=== PATIENT | male | born 1950 | race Caucasian/White ===

== ENCOUNTER 2016-09-10 06:29 | Inpatient (IN) | payer OTHER ==
--- NOTE | ~2016-09-10 | FU ---
[facility] Nutrition Therapy DATE: 09/17/16 Patient: JANI ALLEN Physician: ELIN Address: [address] [facility] [address] Room/Bed: [address], Zip: [place] [address] Admit Date: 09/10/16 Date of : [birth year] Height: 6 0 Weight: 294 133.5 NUTRITION MONITORING/FOLLOW-UP: Reason: PT SEEN FOR FOLLOW-UP/ENTERAL NUTRITION SUPPORT DX: ACUTE RESP FAILURE, PNA Anthropometrics: 6'0", WT: 214# (97 KG), BMI: 29.0 Labs: GLU: 133, BUN: 27, CA:8.2, ALB: 1.9, ALT: 75 Meds: NACL, SOLU-MEDROL, NOVOLOG, PROTONIX I&O's: 1237/2360 Skin: ISSUES NOTED Estimated Nutrition Needs: 5430-7382 KCAL 103-130 G PRO Assessment: CHART REVIEWED AND EVENTS NOTED. PT SEEN FOR ENTERAL NUTRITION SUPPORT FOLLOW-UP. PT EXTUBATED, CURRENTLY ON NASAL CANNULA RECEIVING ALTERNATIVE NUTRITION SUPPORT OF JEVITY 1.5 @ 50 ML/HR + SUGAR-FREE PROSTAT BID. PLANS IN PLACE FOR PATIENT INTAKE COORDINATOR EVAL TODAY WELL TRANSFER TO TELEMETRY. FAMILY IN ROOM REPORTED NO DIET QUESTIONS AT THIS TIME. RD TO CONTINUE TO FOLLOW. SEE RECOMMENDATIONS BELOW. Dx: INADEQUATE ORAL INTAKE R/T DX, CURRENT CONDITION AEB PT RECEIVING ALTERNATIVE NUTRITION SUPPORT. Intervention: 1. ENTERAL NUTRITION SUPPORT Monitoring, Evaluation and Goals: GOALS MET 1. ENTERAL NUTRITION SUPPORT; TOLERATE EN AT GOAL W/NO SIGNS OF INTOLERANCE 2. PO INTAKE; ADVANCE DIET PER PATIENT INTAKE COORDINATOR/TOLERATE DIET W/NO C/O N/V/D 3. LABS; WNL MONITOR: -DIET ADVANCEMENT -PO INTAKE/APPETITE -WEIGHTS -LABS Recommendations: 1. ONCE MEDICALLY FEASIBLE, ADVANCE DIET PER PATIENT INTAKE COORDINATOR EVAL + HH + HIGH KCAL/HIGH PROTEIN [facility] Nutrition Therapy DATE: 09/17/16 Patient: JANI ALLEN Physician: ELIN Address: [address] Room/Bed: [address], Zip: [place] [address] Admit Date: 09/10/16 Date of : [birth year] Height: 6 0 Weight: 294 133.5 2. IF PT UNABLE TO TOLERATE PO INTAKE, RE-START ENTERAL NUTRITION SUPPORT OF JEVITY 1.5 @ 20 ML/HR, ADVANCE 10 ML q 4 HOURS TO GOAL RATE OF 70 ML/HR -PROVIDES 2520 KCAL, 107 G PRO, [address] WILL F/U PER PROTOCOL PT IS MODERATELY COMPROMISED Respectfully, AINSLEY MCCARTHY MS, RD, LD Food and Nutritional Services [facility] cc: client file
--- NOTE | ~2016-09-10 | CR63 ---
[facility] A Service of [facility] & [facility] RADIOLOGY TEXT RESULTS PATIENT: JANI ALLEN LOCATION: [facility] 57-01 : 49 UNIT #: [id number] AGE: [address]: Rm Manley MD SEX: M ORDER DR: [id number] [facility] [address] [place], [place] [address] [id number] I MR#: [id number] Acc #: [id number] NAME: JANI ALLEN : 1950 SEX: M STUDY DATE/TIME: 09/25/2016 11:52 UNIT: [facility] ROOM: [facility] STUDY DESCRIPTION: CR Chest 2 View Attending Physician: Rm Manley M.D. Ordering Physician: Rm Manley M.D. Primary Care Physician: Marie Vickers M.D. MEDICAL IMAGING REPORT This report is preliminary unless electronic signature is present EXAM PA and lateral chest INDICATIONS 66-year male with shortness of breath today. Compared with 09/20/2016. FINDINGS There is increased density in the right base suspicious for worsening infiltrate. There is a very small right pleural effusion. There are bilateral interstitial opacities not significantly changed. Heart size stable. PICC line on the right stable. Degenerative changes thoracic spine. IMPRESSION There appears be a worsening infiltrate in the right lower lobe concerning for worsening pneumonia. Dictated by... Alonso Farooq M.D. THIS IS AN ELECTRONICALLY VERIFIED REPORT Alonso Farooq M.D. at 09/26/2016 10:43 AM ADRY/jessica TD: 09/26/2016 06:25 JOB #: [id number] MEDICAL IMAGING REPORT COPY
--- NOTE | ~2016-09-10 | EKG ---
PATIENT: JANI ALLEN UNIT #: [id number] Ventricular Rate: 121 BPM Atrial Rate: 121 BPM P-R Interval: 120 ms QRS Duration: 140 ms Q-T Interval: 358 ms QTC Calculation(Bezet): 508 ms P [place]: 37 degrees Calculated R [place]: 10 degrees Calculated T [place]: 32 degrees Diagnosis Line: Sinus tachycardia Diagnosis Line: Right bundle branch block Diagnosis Line: Left anterior fascicular block Diagnosis Line: Abnormal ECG Diagnosis Line: When compared with ECG of 03-MAY-2016 06:22, Diagnosis Line: No significant change was found Diagnosis Line: Confirmed by DONNELL TAFOYA MD ([id number]) on 09/10/2016 Diagnosis Line: 5:28:42 PM INTERPRETING MD: MICHELET THURMAN
--- NOTE | ~2016-09-10 | CR72 ---
[facility] A Service of [facility] & [facility] RADIOLOGY TEXT RESULTS PATIENT: JANI ALLEN LOCATION: [place] [address]- : [birth year] UNIT #: [id number] AGE: [address]: Rm Manley MD SEX: M ORDER DR: [id number] [facility] [address] [place], [place] [address] [id number] I MR#: [id number] Acc #: [id number] NAME: JANI ALLEN. : 1950 SEX: M STUDY DATE/TIME: 09/12/2016 4:57 UNIT: [facility] ROOM: [facility] STUDY DESCRIPTION: CR Chest Single View Portable Attending Physician: Rm Manley M.D. Ordering Physician: Rm Manley M.D. Primary Care Physician: Marie Vickers M.D. MEDICAL IMAGING REPORT This report is preliminary unless electronic signature is present EXAM AP portable chest 09/12/2016 HISTORY Respiratory failure. Patient on ventilator. Follow up cardiopulmonary status. TECHNIQUE AP portable chest x-ray. FINDINGS Exam shows no change since yesterday. Endotracheal tube and left arm PICC in good position. Feeding tube below the diaphragm. Patchy infiltrates throughout both lungs, greatest in the lung bases where there are small bilateral pleural effusions. Heart size normal. IMPRESSION Stable portable chest radiograph, unchanged since yesterday. Support devices in good position. Dictated by... Rob Geller M.D. THIS IS AN ELECTRONICALLY VERIFIED REPORT Rob Geller M.D. at 09/12/2016 3:06 PM DALI/paco TD: 09/12/2016 12:06 JOB #: [id number] MEDICAL IMAGING REPORT COPY
--- NOTE | ~2016-09-10 | CR72 ---
[facility] A Service of [facility] & [facility] RADIOLOGY TEXT RESULTS PATIENT: JANI ALLEN LOCATION: [place] [address]- : [birth year] UNIT #: [id number] AGE: [address]: Rm Manley MD SEX: M ORDER DR: [id number] [facility] [address] [place], [place] [address] [id number] I MR#: [id number] Acc #: [id number] NAME: JANI ALLEN. : 1950 SEX: M STUDY DATE/TIME: 09/11/2016 4:03 UNIT: [facility] ROOM: [facility] STUDY DESCRIPTION: CR Chest Single View Portable Attending Physician: Rm Manley M.D. Ordering Physician: Rm Manley M.D. Primary Care Physician: Marie Vickers M.D. MEDICAL IMAGING REPORT This report is preliminary unless electronic signature is present EXAM AP portable chest 09/11/2016 HISTORY Respiratory failure. Patient on ventilator. Follow up cardiopulmonary status. TECHNIQUE AP portable chest x-ray. FINDINGS The exam shows stable patchy airspace infiltrates in both lower lobes and probable tiny bilateral pleural effusions, unchanged since 09/10/2016. Endotracheal tube, left arm PICC and Dobbhoff feeding tube remain in good position. IMPRESSION Stable portable chest radiograph, unchanged since yesterday. Dictated by... Rob Geller M.D. THIS IS AN ELECTRONICALLY VERIFIED REPORT Rob Geller M.D. at 09/11/2016 3:01 PM DALI/radha TD: 09/11/2016 09:59 JOB #: [id number] MEDICAL IMAGING REPORT COPY
--- NOTE | ~2016-09-10 | CR7 ---
[facility] A Service of [facility] & [facility] RADIOLOGY TEXT RESULTS PATIENT: JANI ALLEN LOCATION: [facility] 577-01 : [birth year] UNIT #: [id number] AGE: [address]: Rm Manley MD SEX: M ORDER DR: [id number] [facility] [address] [place], [place] [address] [id number] I MR#: [id number] Acc #: [id number] NAME: JANI ALLEN : 1950 SEX: M STUDY DATE/TIME: 09/22/2016 13:18 UNIT: [facility] ROOM: [facility] STUDY DESCRIPTION: CR Abdomen Single AP View Attending Physician: Rm Manley M.D. Ordering Physician: Clyde Paz M.D. Primary Care Physician: Marie Vickers M.D. MEDICAL IMAGING REPORT This report is preliminary unless electronic signature is present EXAM Abdomen. DATE OF EXAM 09/22/2016 INDICATION Dobbhoff tube placement. Confirm position. FINDINGS The supine view of the abdomen is compared with one from 09/10/2016. The Dobbhoff tube is coiled in the stomach. The bowel gas pattern is normal. The bones are normal. Dictated by... Ritchie Arevalo M.D. THIS IS AN ELECTRONICALLY VERIFIED REPORT Ritchie Arevalo M.D. at 09/22/2016 4:55 PM ERICKA/eileen TD: 09/22/2016 15:58 JOB #: [id number] MEDICAL IMAGING REPORT COPY
--- NOTE | ~2016-09-10 | CR72 ---
[facility] A Service of [facility] & [facility] RADIOLOGY TEXT RESULTS PATIENT: JANI ALLEN LOCATION: [facility] : [birth year] UNIT #: [id number] AGE: [address]: Rm Manley MD SEX: M ORDER DR: [id number] [facility] [address] [place], [place] [address] [id number] E MR#: [id number] Acc #: [id number] NAME: JANI ALLEN. : 1950 SEX: M STUDY DATE/TIME: 09/10/2016 6:28 UNIT: [facility] ROOM: STUDY DESCRIPTION: CR Chest Single View Portable Attending Physician: Ron Gutierrez M.D. Ordering Physician: Ron Gutierrez M.D. Primary Care Physician: Marie Vickers M.D. MEDICAL IMAGING REPORT This report is preliminary unless electronic signature is present EXAM Portable chest. INDICATION Shortness of air and respiratory distress beginning this morning, 09/10/2016. COMPARISON 05/04/2016. FINDINGS Today's portable view of the chest is compared with 05/04/2016. There is some background fibrosis, but there is clearly a new right lower lobe infiltrate measuring a few cm in diameter. The heart size is normal. The bones are unremarkable. Dictated by... Ritchie Arevalo M.D. THIS IS AN ELECTRONICALLY VERIFIED REPORT Ritchie Arevalo M.D. at 09/10/2016 10:25 AM FEL/gz TD: 09/10/2016 09:07 JOB #: [id number] MEDICAL IMAGING REPORT COPY
--- NOTE | ~2016-09-10 | FU ---
[facility] Nutrition Therapy DATE: 09/25/16 Patient: JANI ALLEN Physician: ELIN Address: [address] [facility] [address] Room/Bed: [address] [place] [address], Zip: [place] [address] Admit Date: 09/10/16 Date of : 49 Height: 6 0 Weight: 177 80.5 NUTRITION MONITORING/FOLLOW-UP: Reason: CONSULT RE: BOLUS FEEDS, SEEN FOR FOLLOW-UP Anthropometrics: 6'0", WT: 177# (80 KG), BMI: 24.0 -ADMIT WEIGHT: 190# Labs: GLU: 159, NA+:132, CA+:8.2, ALB: 2.2, ALT: 88 Meds: D5%, MIRALAX, PROTONIX, PREDNISONE, NOVOLOG I&O's: , 1 BM NOTED Skin: ISSUES NOTED Estimated Nutrition Needs: 9492-2362 KCAL 103-130 G PRO Assessment: CHART REVIEWED AND EVENTS NOTED. PT SEEN FOR CONSULT. PT UNABLE TO CONSUME ANYTHING BY MOUTH 2' RISK OF ASPIRATION. PT RECEIVING ALTERNATIVE NUTRITION SUPPORT OF JEVITY 1.5 @ 70 ML/HR. PER RN AND CHART, PT TOLERATING ENTERAL NUTRITION, NO ISSUES NOTED. PER MD NOTES, PLANS TO BEGIN BOLUS FEEDS PER RD RECOMMENDATIONS ONCE D/C'D HOME. FAMILY AND PT REPORTED NO DIET QUESTIONS AT THIS TIME. RD TO FOLLOW. Dx: INADEQUATE ORAL INTAKE R/T DYSPHAGIA AEB NEED FOR ALTERNATIVE NUTRITION SUPPORT. ACTIVE Intervention: 1. ENTERAL NUTRITION IN PLACE Monitoring, Evaluation and Goals: GOALS MET 1. ENTERAL NUTRITION; PROVIDE 80-100% ESTIMATED NEEDS W/NO SIGNS OF INTOLERANCE 2. LABS; WNL Recommendations: 1. ONCE PT TO D/C HOME, RECOMMEND BOLUS FEEDS OF JEVITY 1.5/ 7 CANS DAILY -2 CANS BREAKFAST, 2 CANS LUNCH, 2 CANS DINNER + 1 CAN HS SNACK ADD FREE H20 FLUSHES PER MD RD WILL F/U PER PROTOCOL PT IS MODERATELY COMPROMISED Respectfully, [facility] Nutrition Therapy DATE: 09/25/16 Patient: JANI ALLEN Physician: ELIN Address: [address] Room/Bed: [address] [place] [address], Zip: [place] [address] Admit Date: 09/10/16 Date of : 49 Height: 6 0 Weight: 177 80.5 AINSLEY MCCARTHY MS, RD, LD Food and Nutritional Services [facility] cc: client file
--- NOTE | ~2016-09-10 | FU ---
[facility] Nutrition Therapy DATE: 09/14/16 Patient: JANI ALLEN Physician: ELIN Address: [address] [facility] [address] Room/Bed: [address], Zip: [place] [address] Admit Date: 09/10/16 Date of : [birth year] Height: 6 0 Weight: 213 97 NUTRITION MONITORING/FOLLOW-UP: Reason: Enteral nutrition follow-up Anthropometrics: Wt: 97 kg (213 lbs) Labs: 09/13: Glucose 178, BUN 25, POC 118 (09/14) Meds: PPI, Novolog (medium SSI), Solu-Medrol, Propofol @ 26 ml/hr (687 lipid kcals) I&O's: 3306/1340, last BM 09/07, abdomen distended, hypoactive bowel sounds Skin: No change Estimated Nutrition Needs: 7400-5865 kcals per day 103-130 g protein per day Fluids consistent with kcal needs or per MD Assessment: Chart reviewed, events noted. Patient remains on vent, following commands. EN off all last night due to 230 ml residuals, per RN. RN restarted feeds this morning with Jevity 1.5, increased to 40 ml/hr due to concerns that the patient is being overfed with current goal of 70 ml/hr due to increase in Propofol rate. Previous nutrition goals not yet met, nutrition dx remains with improvement. See new goal rate recs below, will inform RN. Dx: Inadequate oral intake r/t clinical condition, dx AEB intubated, sedated, need for EN - ACTIVE Intervention: Decrease EN to new goal rate of 50 ml/hr and add Prostat BID Monitoring, Evaluation and Goals: SOME MET 1. EN to provide 80-100% goal volume x 24 hrs. 2. Labs WNL. 3. Promote regular BM's. Monitor: Per protocol, criteria to determine if above goals met Recommendations: 1. Decrease enteral feeds with Jevity 1.5 to new goal rate of 50 ml/hr with propofol at current rate. Please add 30 ml Prostat BID to meet protein needs. This nutrition regimen + [facility] Nutrition Therapy DATE: 09/14/16 Patient: JANI ALLEN Physician: ELIN Address: [address] [facility] [address] Room/Bed: [address], Zip: [place] [address] Admit Date: 09/10/16 Date of : [birth year] Height: 6 0 Weight: 213 97 kcals from propfol will provide 2687 kcals (687 lipid kcals from propofol), 107 g protein and 912 ml water. Free water flushes per MD. 2. Check triglycerides. 3. If propofol is discontinued increase enteral feeds to new goal rate of 70 ml/hr and D/C Prostat. 4. Consider adding a bowel regimen to promote regular BM's (last BM documented 09/07). Status: Moderate nutrition risk Respectfully, Aislinn Perez RD, LD Food and Nutritional Services [facility] cc: client file
--- NOTE | ~2016-09-10 | CR72 ---
[facility] A Service of [facility] RADIOLOGY TEXT RESULTS PATIENT: JANI ALLEN LOCATION: [facility] 577-01 : 49 UNIT #: [id number] AGE: [address]: Rm Manley MD SEX: M ORDER DR: [id number] [facility] [address] [place], [place] [address] [id number] I MR#: [id number] Acc #: [id number] NAME: JANI ALLEN : 1950 SEX: M STUDY DATE/TIME: 10/07/2016 13:31 UNIT: [facility] ROOM: [facility] STUDY DESCRIPTION: CR Chest Single View Portable Attending Physician: Rm Manley M.D. Ordering Physician: Henry Francis M.D. Primary Care Physician: Marie Vickers M.D. MEDICAL IMAGING REPORT This report is preliminary unless electronic signature is present EXAM Chest 10/07/2016 1331 hours HISTORY 66-year-old with 1-month history of shortness of air, history of COPD and CHF. COMPARISON 10/06/1969 FINDINGS Portable upright chest demonstrates stable left PICC line with tip in SVC. There are emphysematous changes with homogeneous density at the right lung base similar to prior exam. There is patchy density at the left base. There is likely a stable small right effusion. IMPRESSION Stable emphysematous change with opacity at the right greater than left base. Findings likely represent pneumonia with a small parapneumonic effusion on the right. Findings are similar to yesterday's exam. Dictated by... Dixie Carroll M.D. THIS IS AN ELECTRONICALLY VERIFIED REPORT Dixie Carroll M.D. at 10/08/2016 8:42 AM AKANKSHA/huanr TD: 10/07/2016 14:44 JOB #: [id number] MEDICAL IMAGING REPORT Page 1 of 1 COPY
--- NOTE | ~2016-09-10 | OR ---
Unit #: [id number] #: [id number] Patient: JANI ALLEN [id number] [place] [id number] [facility] [place], [place] [address] [id number] I MR#: [id number] NAME: JANI ALLEN. ROOM: 577 Date of Procedure: 09/22/2016 Admission Date: 09/10/2016 Surgeon: Clyde Paz M.D. : 1950 Attending Physician: Rm Manley M.D. Primary Care Physician: Marie Vickers M.D. OPERATIVE REPORT JOB NOTE: CC: [facility] Marie Vickers M.D. REASON FOR CONSULTATION Dysphagia. PROCEDURES PERFORMED Upper gastrointestinal endoscopy. POSTOPERATIVE DIAGNOSES Completely normal examination up to third part of duodenum. Specifically, no evidence of esophageal mucosal abnormalities whatsoever were seen. RECOMMENDATIONS Dobbhoff tube was then placed at the end of the procedure for feeding. The patient does have significant oropharyngeal dysphagia and aspiration and most likely require more permanent solution for enteral feeding in the form of the PEG tube. This will be discussed with his family and patient again over the next 24 hours and a PEG tube will be entertained in the next day or two. SEDATION USED MAC. DESCRIPTION OF PROCEDURE Following detailed explanation of the potential risks and complications of an upper endoscopy, namely perforation, bleeding, and complications related to sedation, the patient was brought to GI lab and laid in the left lateral decubitus position. Lubricated tip of the Olympus video upper endoscope was passed through the bite block into the proximal esophagus under direct vision. The entire esophageal mucosa was examined and appeared normal. Z-line was nicely demarcated, there being no esophagitis or hiatus hernia. The scope was then advanced into the gastric cavity and the latter was insufflated. Mucosa of the fundus, body, and antrum examined and appeared unremarkable. Pylorus was intubated with visualization of the normal duodenal bulb and second and third part of the duodenum. Upon withdrawal and retroflexion, incisura, cardia, and greater curve examined and no additional findings noted. The scope was then withdrawn in the distal esophagus. The entire esophageal mucosa was examined all the way up to pharynx. No additional findings Unit #: [id number] #: [id number] Patient: JANI ALLEN noted. The patient tolerated the procedure without any postprocedure complications. Dictated by... Idalia Myers/rudolph TD: 09/23/2016 00:36 JOB #: [id number] OPERATIVE REPORT X Clyde Paz MD X PROCEDURE OPERATIVE NOTE
--- NOTE | ~2016-09-10 | CR72 ---
[facility] A Service of [facility] & [facility] RADIOLOGY TEXT RESULTS PATIENT: JANI ALLEN LOCATION: [place] [address]- : [birth year] UNIT #: [id number] AGE: [address]: Rm Manley MD SEX: M ORDER DR: [id number] [facility] [address] [place], [place] [address] [id number] I MR#: [id number] Acc #: [id number] NAME: JANI ALLEN : 1950 SEX: M STUDY DATE/TIME: 10/06/2016 7:59 UNIT: [facility] ROOM: [facility] STUDY DESCRIPTION: CR Chest Single View Portable Attending Physician: Rm Manley M.D. Ordering Physician: Henry Francis M.D. Primary Care Physician: Marie Vickers M.D. MEDICAL IMAGING REPORT This report is preliminary unless electronic signature is present EXAM Portable chest, 10/06 INDICATION Shortness of air. COPD. Symptoms for 3 weeks. FINDINGS AP portable chest is compared with 10/03/2016. Left arm PICC in the lower SVC. Heart size stable. The lungs remain emphysematous. Dense consolidation in the right base is stable with a small right effusion. Minimal if any infiltrate noted in left base. No pneumothorax. Dictated by... Javier Hwang Jr., M.D. THIS IS AN ELECTRONICALLY VERIFIED REPORT Javier Hwang Jr., M.D. at 10/06/2016 3:46 PM MATHEW/dora TD: 10/06/2016 14:12 JOB #: [id number] MEDICAL IMAGING REPORT Page 1 of 1 COPY
--- NOTE | ~2016-09-10 | A ---
[facility] Nutrition Therapy DATE: 09/11/16 Patient: JANI ALLEN Physician: ELIN Address: [address] [facility] Room/Bed: [address], Zip: [place] [address] Admit Date: 09/10/16 Date of : [birth year] Height: 6 0 Weight: 198 90 NUTRITIONAL ASSESSMENT: REASON: NPO IN ICU ASSESSMENT PT IS 66 Y.O. MALE ADMITTED FOR ACUTE RESPIRATORY FAILURE, PNA PMH: STAGE III COPD, CHRONIC RESPIRATORY FAILURE, SHERITA, HTN, HLD Anthropometrics: 6'0", WT: 190# (86 KG), BMI: 25.8 Labs: GLU: 154, CA+:7.6, ALB: 2.5, LIPASE: 11 Meds: PROPOFOL, SOLU-MEDROL, PROTONIX, NACL I/O & Bowel function: 2898/1370 Skin Integrity: NO KNOWN SKIN ISSUES Estimated Nutrition Needs: 3020-8930 KCAL (30-35 KCAL/KG BW) 103-130 G PRO (1.2-1.5 G PRO/KG BW) FLUIDS CONSISTENT W/KCAL NEEDS OR MANAGE PER MD Assessment: CHART REVIEWED AND EVENTS NOTED. PT SEEN FOR NPO IN ICU ASSESSMENT. PT CURRENTLY INTUBATED AND SEDATED W/PROPOFOL (RATE OF 13 ML/HR PROVIDING ~343 KCAL FROM LIPIDS). PT RECEIVING ALTERNATIVE NUTRITION SUPPORT OF JEVITY 1.5 @ 20 ML/HR VIA DHT. NO FAMILY IN ROOM AT TIME OF VISIT. PER RN AND CHART, BRONCHOSCOPY SCHEDULED TODAY. RD TO FOLLOW AND PROVIDE RECOMMENDATIONS. Dx: INADEQUATE ORAL INTAKE R/T DX, CURRENT CONDITION AEB PT INTUBATED AND SEDATED, ALTERNATIVE NUTRITION SUPPORT IN PLACE. Intervention: 1. ENTERAL NUTRITION SUPPORT Monitoring, Evaluation and Goals: 1. ENTERAL NUTRITION; PROVIDE 100% ESTIMATED NUTRIENT NEEDS; TOLERATE EN AT GOAL W/NO SIGNS OF INTOLERANCE 2. PO INTAKE; ADVANCE DIET TOLERATED W/NO C/O N/V/D 3. LABS; WNL: GLU 4. GI; PROMOTE REGULAR GI FUNCTION MONITOR: -WEIGHTS [facility] Nutrition Therapy DATE: 09/11/16 Patient: JANI ALLEN Physician: ELIN Address: [address] [facility] [address] Room/Bed: [address], Zip: [place] [address] Admit Date: 09/10/16 Date of : [birth year] Height: 6 0 Weight: 198 90 -TF RATE/RESIDUALS -LABS -EXTUBATION? Recommendations: 1. CONTINUE TO MONITOR ELECTROLYTES AND BLOOD SUGAR LEVELS- PT ON STEROIDS 2. ONCE MEDICALLY FEASIBLE, ADVANCE CURRENT ENTERAL NUTRITION SUPPORT OF JEVITY 1.5 TO GOAL RATE OF 70 ML/HR (ADVANCE 10 ML q 4 HOURS) + SEDATION -PROVIDES 2863 KCAL, 107 G PRO, 1277 ML FREE H20 ADD FREE H20 FLUSHES OF 200 ML q 4 HOURS TO MEET PT'S CURRENT ESTIMATED FLUID NEEDS OR MANAGE PER MD 3. ONCE PT EXTUBATED, ADVANCE DIET PER BINDER LAYER + HH DIET (HIGH KCAL + HIGH PROTEIN DIET) RD WILL F/U PER PROTOCOL PT IS SEVERELY COMPROMISED Respectfully, AINSLEY MCCARTHY MS, RD, LD Food and Nutritional Services [facility] cc: client file
--- NOTE | ~2016-09-10 | CO ---
Unit #: [id number] #: [id number] Patient: JANI JARQUIN [id number] [facility]. [place], [place] [address] [id number] I MR#: [id number] NAME: JANI JARQUIN. ROOM: 577 Age: 66 Sex: M Admission Date: 09/10/2016 : 1950 Attending Physician: Rm Manley M.D. Primary Care Physician: Marie Vickers M.D. Consultation Date: 10/05/2016 CONSULTATION REPORT REASON FOR CONSULTATION Hyponatremia. HISTORY OF PRESENT ILLNESS Mr. Jarquin is a 66-year-old male, who has now been here almost a month due to complications from his chronic lung disease and bronchiectasis. The patient had actually been in the unit and on the ventilator during this hospitalization. I am now seeing him on the floor and he is on oxygen and is getting tube feeds due to issues with aspiration and aspiration pneumonia. We were asked to see for chronic low sodium problems. Of note, the patient has been getting some Lasix and also some saline over the last few days. Lasix has been held. His sodium level is actually better today than on the last few checks. He is noted to be on Effexor, which can cause SIADH and hyponatremia. He is not getting any free water with his tube feeds. There are no swelling issues. He has no history of congestive heart failure with a normal ejection fraction on echo on 09/11. He does not appear to be in any pain or distress. There has been no vomiting or diarrhea reported. PAST MEDICAL HISTORY Significant for bronchiectasis, COPD, hyperlipidemia, and hypertension. PAST SURGICAL HISTORY He has had bronchoscopies. CURRENT MEDICATIONS As follows: He is on DuoNeb inhaler, Lovenox 40 mg subcu daily, Singulair 10 mg a day, aspirin daily, Abilify 5 mg a day, Lopressor 5 mg IV q.6, Protonix 40 mg a day, Effexor 75 mg b.i.d., MiraLax daily, Florastor b.i.d., prednisone 20 mg a day, sliding scale insulin and p.r.n. ALLERGIES He has quoted allergy to azithromycin. FAMILY HISTORY Negative for lung disease or any sodium issues, the low sodium issues is likely noncontributory as far as his family history is concerned. SOCIAL HISTORY He is a former smoker. There is no reported alcohol or drug abuse. REVIEW OF SYSTEMS A complete 12-point review of systems was completed and attempted with the above findings. It was difficult with the patient's lethargy and Unit #: [id number] #: [id number] Patient: JANI JARQUIN A generalized weakness, as he was fairly quiet during the course of the history and exam. There have been no reports of fevers or chills. No nosebleed. No sore throat or earache. No chest pain. No hemoptysis. No abdominal pain. No bright red blood per rectum or melena. No dysuria or hematuria via the Proctor catheter. No swelling. No rashes. No itching. No flank pain. No night sweats or hot flashes. No intolerance to heat or cold. No bleeding issues. Unless otherwise indicated, the review of systems was negative. PHYSICAL EXAMINATION VITAL SIGNS: The patient is afebrile, pulse 85, respiratory rate 16, blood pressure 137/62. I's and O's are negative by 1640 mL. GENERAL: This is a pleasant white male, sitting up in bed, tolerating tube feeds, in no acute distress. HEENT: Head is atraumatic and normocephalic. Eyes show pale conjunctivae with no scleral icterus. No nosebleed. Oropharynx is dry. NECK: Without JVD. HEART: Regular rate and rhythm with no murmurs, gallops, or rubs appreciated. LUNGS: Have diffuse bilateral rhonchi with no wheezing. Breathing is nonlabored. ABDOMEN: Soft with PEG in place, nontender, bowel sounds are present. EXTREMITIES: No lower extremity cyanosis or pitting edema. SKIN: Dry without rashes. I do note some tattoos. GENITOURINARY: Proctor catheter is in place with nonbloody urine. MUSCULOSKELETAL: No joint effusions noted. NEUROLOGIC: Noteworthy for some generalized weakness. PSYCHIATRIC: Mood appears normal. Affect is somewhat flat. DIAGNOSTIC STUDIES IMAGING STUDIES: Chest x-ray done yesterday did show some right basilar and left basilar infiltrates with small bilateral effusions. LABORATORY RESULTS: Chemistry this morning noteworthy for a sodium up to 134, K 4.4, bicarb 37, creatinine 0.5. Serum osmolality, which is a little bit low at 279. Urine osmolality was 588 with a urine sodium of 114. Hemoglobin today was 9.6, white count was normal. Yesterday's sodium was 130. BMP on the was just 56. Review of all of his sodium levels here is noteworthy for a drop in the sodium on first check yesterday to 125 prompting this consultation. It has been low to the majority of this admission and has been low on multiple occasions back in 2016 as well. I do not see a uric acid level or a TSH level that have been drawn. ASSESSMENT AND PLAN 1. Hyponatremia. This is likely SIADH from his underlying lung disease. He is also on Effexor, which can cause a SIADH syndrome. The patient tells me he is on Effexor and Abilify to help calm his nerves. The Abilify is likely okay to use, but the Effexor we will try to reduce and then even discontinue. He is not getting any free water with his feeds which we will leave him off. No history of congestive heart failure. Treatment going forward will be fluid restriction and reduction in his Effexor. I will be sending off a uric acid level and TSH level. 2. Depression. We will be decreasing his Effexor down to b.i.d. 3. SIADH syndrome. We will be stopping his Effexor which can cause SIADH. Certainly, his underlying lung disease is likely the primary cause. 4. Bronchiectasis per Pulmonary. 5. History of aspiration with percutaneous endoscopic gastrostomy tube. Unit #: [id number] #: [id number] Patient: JANI JARQUIN 6. Chronic obstructive pulmonary disease. I would like to thank Dr. Francis for this consult and the opportunity to participate in evaluation and care of Mr. Jarquin. Dictated by... Palomo Rivas Jr., M.D. LEONARDA/rudolph TD: 10/05/2016 23:01 JOB #: [id number] CONSULTATION REPORT Page 1 of 1 X Palomo Rivas MD X CONSULTATION REPORT
--- NOTE | ~2016-09-10 | CR72 ---
[facility] A Service [facility] RADIOLOGY TEXT RESULTS PATIENT: JANI ALLEN [address] [birth year] UNIT #: [id number] AGE: [address]: Rm Manley MD SEX: M ORDER DR: [id number] [facility] [address] [place], [place] [address] [id number] I MR#: [id number] Acc #: [id number] NAME: JANI ALLEN. : 1950 SEX: M STUDY DATE/TIME: 09/17/2016 5:06 UNIT: [facility] ROOM: [facility] STUDY DESCRIPTION: CR Chest Single View Portable Attending Physician: Rm Manley M.D. Ordering Physician: Henry Francis M.D. Primary Care Physician: Marie Vickers M.D. MEDICAL IMAGING REPORT This report is preliminary unless electronic signature is present EXAM Portable chest. HISTORY Pulmonary edema and pneumonia. COMPARISON 09/16/2016 TECHNIQUE Single AP view of the chest was obtained. FINDINGS The endotracheal tube has been removed. A left-sided PICC is in satisfactory position. The heart and mediastinum are stable. Infiltrates are again noted bilaterally, predominately in the buw-dv-lckih lung gallegos. There has been slight improvement since the previous exam. No new areas of consolidation are seen. Vascular markings are within normal limits. IMPRESSION Bilateral pneumonia again noted. The infiltrates show slight improvement since the previous examination. Dictated by... Javier Zamorano M.D. THIS IS AN ELECTRONICALLY VERIFIED REPORT Javier Zamorano M.D. at 09/17/2016 3:26 PM RLF/geno [facility] A Service [facility] RADIOLOGY TEXT RESULTS PATIENT: JANI ALLEN LOCATION: [facility]08-28 : [birth year] UNIT #: [id number] AGE: [address]: Rm Manley MD SEX: M ORDER DR: TD: 09/17/2016 09:49 JOB #: [id number] MEDICAL IMAGING REPORT COPY
--- NOTE | ~2016-09-10 | FU ---
[facility] Nutrition Therapy DATE: 09/23/16 Patient: JANI ALLEN Physician: ELIN Address: [address] [facility] [address] Room/Bed: [address] [place] [address], Zip: [place] [address] Admit Date: 09/10/16 Date of : [birth year] Height: 6 0 Weight: 177 80.3 NUTRITION MONITORING/FOLLOW-UP: Reason: Enteral nutrition follow-up Anthropometrics: Ht: 72", admission wt: 190 lbs, current wt: 180 lbs, BMI: 25.8 Labs: NA 128, K+ 5.4, Glucose 123, POC 75-98 (09/22), ALT 48 Meds: NACL, Novolog (medium SSI), PPI, NSIV @ 100 ml/hr I&O's: 1050/2575, last BM 09/19 Skin: No new issues, BLE trace edema Estimated Nutrition Needs: 4815-8793 kcals per day (30-35 kcals/kg admission wt) 103-130 g protein per day (1.2-1.5 g/kg admission wt) Fluids consistent with kcal needs or per MD Assessment: Chart reviewed, events noted. Patient on oxymizer, DHT placed yesterday for alternative nutrition support due to dysphagia, currently NPO. ROTARY DERRICK OPERATOR following, therapist discussed in length with the patient today regarding his dysphagia and rehab to regain swallow, patient understood, they will continue to follow. Dr. Paz recommended upper endoscopy yesterday. DHT was placed yesterday and enteral feeds were started with Jevity 1.5, currently running @ 50 ml/hr (goal is 70 ml/hr). Patient states he has not felt nauseated, has not vomited. RD explained feeds are being increased to goal rate gradually so that he receives all the nutrition he needs, him and his agreed and were appreciative of the information. Previous nutrition goal related to EN not yet met, goal related to PO diet no longer relevant as the patient is now NPO. Nutrition diagnosis remains, see recs below. Dx: Inadequate oral intake r/t dysphagia AEB NPO, need for enteral nutrition - ACTIVE Intervention: Increase to goal rate by 10 ml q 4 hours Monitoring, Evaluation and Goals: IN PROGRESS 1. EN to provide > 80% goal volume x 24 hours (once at goal rate). 2. Improvement in electrolytes. Monitor: Per protocol, criteria to determine if above goals met Recommendations: [facility] Nutrition Therapy DATE: 09/23/16 Patient: JANI Harp ALEJANDRO Physician: ELIN Address: [address] [facility] [address] Room/Bed: [address] [place] [address], Zip: [place] [address] Admit Date: 09/10/16 Date of : [birth year] Height: 6 0 Weight: 177 80.3 1. Increase enteral feedings per DHT by 10 ml q 4 hours until goal rate of 70 ml/hr is reached, to provide 2520 kcals, 107 g protein and 1277 ml water. Free water flushes per MD once at goal rate noting hyponatremia. Patient is to remain NPO at this time due to dysphagia- ROTARY DERRICK OPERATOR following. 2. Monitor for signs of enteral nutrition intolerance such as N/V/D. Do not hold feeds for residuals < 400 ml. For residuals > 400 ml do not hold feeds and measure again in 4 hours. If 2nd GRV measurement is > 400 ml hold feeding and continue to reassess q 4 hours. Resume feeds when GRV < 400 ml. Status: Mild-moderate nutrition risk Respectfully, Aislinn Perez, BABATUNDE, LD Food and Nutritional Services [facility] cc: client file
--- NOTE | ~2016-09-10 | OR ---
Unit #: [id number] #: [id number] Patient: JANI JARQUIN [id number] [facility]. [place], [place] [address] [id number] Francis MR#: [id number] NAME: JANI JARQUIN. ROOM: [facility] Date of Procedure: 09/11/2016 Admission Date: 09/10/2016 Surgeon: Rm Manley M.D. : 1950 Attending Physician: Rm Manley M.D. Primary Care Physician: Marie Vickers M.D. OPERATIVE REPORT PROCEDURE PERFORMED Bronchoscopy. INDICATIONS FOR PROCEDURE Bronchiectasis with pneumonia. PREOPERATIVE DIAGNOSIS Bronchiectasis and pneumonia and likely mucous plugging. INTRAOPERATIVE FINDINGS Very significant mucous plugging bilaterally throughout. POSTOPERATIVE DIAGNOSIS Very significant mucous plugging bilaterally throughout. DESCRIPTION OF PROCEDURE Mr. Jarquin is a 66-year-old male with bronchiectasis and tends to accumulate quite a bit of secretions. He was intubated. When he came to the emergency room, and I found bronchoscopy was necessary because of the very high likelihood of mucus plugging. The scope was introduced through the endotracheal tube through a special adaptor on the apparatus attached to the endotracheal tube already. The endotracheal tube had a little bit of mucus in it, but not bad. The distal trachea had white mucus in it. This was washed and suctioned. Main maximino was sharp. There was copious white mucus everywhere that is left main stem, left upper lobe, left lower lobe, and with washing, there was some distal plugs that came out virtually everywhere as it is particularly true with the left lower lobe. After washing white material just kept coming out, surprisingly when I have already suctioned it all out. On the right side however, there were no endobronchial lesions, left upper lobe including the lingula and left lower lobe. On the right side, the right upper lobe actually had the least amount of mucus. There was mucus plugging in the bronchus intermedius. There was very significant mucous in the right lower lobe even more than the right middle lobe. The right lower lobe bronchi looked a little bit friable and there was an area that was just inside probably the lateral subsegmental bronchus that was red probably looks like a hematoma. It was there prior to any contact with the bronchoscope. I was quite concerned initially about friability and causing bleeding, but surprisingly washing really did not cause any oozing of blood. I therefore proceeded with the planned BAL of right lower lobe and quite a bit of white distal mucous plugs were freed up from the right lower lobe. The BAL was done basically and all three of the right lower lobe basilar Unit #: [id number] #: [id number] Patient: JANI JARQUIN segments that is anterolateral and posterior. There was a fair amount of white material that came out of the superior segment of the right lower lobe while I was doing the BAL. The patient tolerated the procedure well and really there was not any true oozing of blood in that right lower lobe despite the friability. I had estimated blood loss was no more than 5 mL. Frankly, I am not even sure there was that much. The washings and BAL will be sent for the usual cytology and microbiology studies. The patient tolerated the procedure well with no obvious complications. Oxygenation was well maintained during the procedure and he had been turned up to 100% prior to the procedure. Dictated by... Idalia Ruiz/rudolph TD: 09/11/2016 10:12 JOB #: [id number] OPERATIVE REPORT X Rm Manley MD X PROCEDURE OPERATIVE NOTE
--- NOTE | ~2016-09-10 | FU ---
[facility] Nutrition Therapy DATE: 10/05/16 Patient: JANI ALLEN Physician: ELIN Address: [address] Room/Bed: [address] [place] [address], Zip: [place] [address] Admit Date: 09/10/16 Date of : [birth year] Height: 6 0 Weight: 185 84.3 NUTRITION MONITORING/FOLLOW-UP: Reason: Enteral nutrition follow up Anthropometrics: Wt 10/05: 84.3 kg Labs: Na+ 134 Cl- 88 Creat 0.5 Alb 2.7 Accuchecks 106-137 Meds: Prednisone, miralax, novolog, protonix, lopressor I&O's: 3460/5100, last BM 10/04 Skin: Scattered bruising to abdomen/ BUE Edema: BLE trace Estimated Nutrition Needs: 2085-9259 kcals 103-130 grams protein Assessment: Chart reviewed, events noted. Pt continues to receive enteral nutrition with Jevity 1.5 @ goal of 70 mL/hr. RD spoke with the pt and his at bedside. Pt denies having any symptoms of enteral nutrition intolerance; however, he states that he is hungry and wonders when he will be able to eat. RD explained that the pt needs a video swallow evaluation to determine when and if he will be able to eat. RN reports that the pt is not ready for video swallow per TUNGSTEN TENDER eval. Per enteral pump history, the pt has received 102% of his estimated needs over the past 48 hrs. This indicates that enteral nutrition must have been increased above goal rate over a short period of time over the past 48 hrs. Pt and family denied having any questions. Nutrition diagnosis remains active. Dx: Inadequate oral intake RT dysphagia AEB need for alternative nutrition support- ACTIVE Intervention: 1. Enteral nutrition 2. TUNGSTEN TENDER Monitoring, Evaluation and Goals: GOALS EITHER BEING MET Recommendations: 1. Continue Jevity 1.5 @ 70 mL/hr as tolerated. 2. If the pt is discharged home, consider bolus enteral nutrition with 7 cans Jevity 1.5 [facility] Nutrition Therapy DATE: 10/05/16 Patient: JANI ALLEN Physician: ELIN Address: [address] Room/Bed: [address] [place] [address], Zip: [place] [address] Admit Date: 09/10/16 Date of : [birth year] Height: 6 0 Weight: [address] recommends the following: -Bolus 2 cans for breakfast, 2 cans for lunch, 2 cans for dinner, and one can at hs (1 can = ~240 mL) 3. Continue TUNGSTEN TENDER as appropriate to determine the least restrictive diet tolerated by the pt. TUNGSTEN TENDER recommends video swallow once appropriate. Status: Pt is at mild nutritional risk. Respectfully, ADITHYA CHARLES RD, LD Food and Nutritional Services [facility] cc: client file
--- NOTE | ~2016-09-10 | CR72 ---
[facility] A Service of [facility] RADIOLOGY TEXT RESULTS PATIENT: JANI ALLEN LOCATION: [facility] [address] : [birth year] UNIT #: [id number] AGE: [address]: Rm Manley MD SEX: M ORDER DR: [id number] [facility] [address] [place], [place] [address] [id number] I MR#: [id number] Acc #: [id number] NAME: JANI ALLEN. : 1950 SEX: M STUDY DATE/TIME: 09/20/2016 6:47 UNIT: [facility] ROOM: [facility] STUDY DESCRIPTION: CR Chest Single View Portable Attending Physician: Rm Manley M.D. Ordering Physician: Henry Francis M.D. Primary Care Physician: Marie Vickers M.D. MEDICAL IMAGING REPORT This report is preliminary unless electronic signature is present EXAM Portable chest 09/20/2016 INDICATION Acute hypoxic failure. COMPARISON 09/18/2016. FINDINGS Today's portable view of the chest shows faint patchy bilateral lower lobe infiltrates which are unchanged from 09/18/2016. The heart size normal. The PIC catheter has its tip in the superior vena cava. Dictated by... Ritchie Arevalo M.D. THIS IS AN ELECTRONICALLY VERIFIED REPORT Ritchie Arevalo M.D. at 09/21/2016 7:13 AM ERICKA/dallas TD: 09/20/2016 13:42 JOB #: [id number] MEDICAL IMAGING REPORT COPY
--- NOTE | ~2016-09-10 | CR72 ---
[facility] A Service of [facility] & [facility] RADIOLOGY TEXT RESULTS PATIENT: JANI ALLNE LOCATION: [facility] [address] : [birth year] UNIT #: [id number] AGE: [address]: Rm Manley MD SEX: M ORDER DR: [id number] [facility] [address] [place], [place] [address] [id number] I MR#: [id number] Acc #: [id number] NAME: JANI ALLEN. : 1950 SEX: M STUDY DATE/TIME: 09/30/2016 17:56 UNIT: [facility] ROOM: [facility] STUDY DESCRIPTION: CR Chest Single View Portable Attending Physician: Rm Manley M.D. Ordering Physician: Gerber Francis Primary Care Physician: Marie Vickers M.D. MEDICAL IMAGING REPORT This report is preliminary unless electronic signature is present EXAM Portable chest dated 09/30 COMPARISON 09/25. HISTORY Respiratory failure, heart failure, pneumonia, COPD. Admitted on September 10 with same symptoms. FINDINGS AP view is obtained. Cardiac size is stable. Continues to be an infiltrate and/or pleural fluid at the right base, is unchanged. The left base has largely cleared. Heart size is normal. The patient has underlying chronic lung disease. Left-sided PICC line terminates in the SVC. CONCLUSION Continued right-sided infiltrate at the base with likely some pleural fluid, left base is largely cleared. COPD. Dictated by... Loc Rodriguez M.D. THIS IS AN ELECTRONICALLY VERIFIED REPORT Loc Rodriguez M.D. at 10/04/2016 5:10 PM Kody TD: 10/01/2016 08:07 JOB #: [id number] MEDICAL IMAGING REPORT COPY
--- NOTE | ~2016-09-10 | CR72 ---
[facility] A Service of [facility] & [facility] RADIOLOGY TEXT RESULTS PATIENT: JANI ALLEN LOCATION: [address] [address] : [birth year] UNIT #: [id number] AGE: [address]: Rm Manley MD SEX: M ORDER DR: [id number] [facility] [address] [place], [place] [address] [id number] I MR#: [id number] Acc #: [id number] NAME: JANI ALLEN : 1950 SEX: M STUDY DATE/TIME: 09/16/2016 4:24 UNIT: [facility] ROOM: [facility] STUDY DESCRIPTION: CR Chest Single View Portable Attending Physician: Rm Manley M.D. Ordering Physician: Gerber Francis Primary Care Physician: Marie Vickers M.D. MEDICAL IMAGING REPORT This report is preliminary unless electronic signature is present EXAM Portable AP view of the chest COMPARISON September 15, 2016, September 14, 2016 and September 12, 2016. INDICATIONS 66-year-old male with respiratory failure requiring ventilatory support for 6 days. Pneumonia. History of hypertension. FINDINGS/IMPRESSION Endotracheal tube tip terminates 5.2 cm above the maximino. There is a left upper extremity PICC with the tip curling into the azygos vein. Repositioning is recommended. This is new from comparison of yesterday. Feeding tube curls within the stomach with the tip terminating at the gastric fundus. Persistent cardiomegaly with persistent bilateral midlung and bibasilar opacities suggestive of dependent edema. Correlation to exclude signs of pneumonia recommended. Improved bilateral now trace pleural effusions. Healed left-sided rib fractures. Dictated by... Leroy Pino M.D. THIS IS AN ELECTRONICALLY VERIFIED REPORT Leroy Pino M.D. at 09/21/2016 9:28 AM Richy TD: 09/16/2016 06:26 JOB #: [id number] MEDICAL IMAGING REPORT COPY
--- NOTE | ~2016-09-10 | CR72 ---
[facility] A Service of [facility] & [facility] RADIOLOGY TEXT RESULTS PATIENT: JANI ALLEN LOCATION: [place] [address] : [birth year] UNIT #: [id number] AGE: [address]: Rm Manley MD SEX: M ORDER DR: [id number] [facility] [address] [place], [place] [address] [id number] I MR#: [id number] Acc #: [id number] NAME: JANI ALLEN. : 1950 SEX: M STUDY DATE/TIME: 09/15/2016 2:34 UNIT: [facility] ROOM: [facility] STUDY DESCRIPTION: CR Chest Single View Portable Attending Physician: Rm Manley M.D. Ordering Physician: Henry Francis M.D. Primary Care Physician: Marie Vickers M.D. MEDICAL IMAGING REPORT This report is preliminary unless electronic signature is present EXAM Portable AP view of the chest. COMPARISON September 14, 2016 and September 12, 2016. INDICATION 66-year-old male with respiratory failure requiring ventilatory support for 5 days. History of hypertension. Fever. FINDINGS AND IMPRESSION Endotracheal tube tip is again seen to terminate approximately 4.5 cm above the maximino. Left upper extremity PICC tip terminates in the lower SVC. Feeding tube passes below the diaphragm and curls within the gastric fundus. No evidence of a pneumothorax. Grossly stable small left pleural effusion with increasing small right pleural effusion. Bibasilar opacities are grossly stable reflecting pneumonia or atelectasis. Stable cardiomegaly. Dictated by... Leroy Pino M.D. THIS IS AN ELECTRONICALLY VERIFIED REPORT Leroy Pino M.D. at 09/20/2016 8:59 PM LEV/geno TD: 09/15/2016 09:35 JOB #: [id number] MEDICAL IMAGING REPORT COPY
--- NOTE | ~2016-09-10 | CR63 ---
[facility] A Service of [facility] / [facility] RADIOLOGY TEXT RESULTS PATIENT: JANI ALLEN LOCATION: [facility] 5701-15 : [birth year] UNIT #: [id number] AGE: [address]: Rm Manley MD SEX: M ORDER DR: [id number] [facility] [address] [place], [place] [address] [id number] I MR#: [id number] Acc #: [id number] NAME: JANI ALLEN : 1950 SEX: M STUDY DATE/TIME: 10/03/2016 12:28 UNIT: [facility] ROOM: [facility] STUDY DESCRIPTION: CR Chest 2 View Attending Physician: Rm Manley M.D. Ordering Physician: Henry Francis M.D. Primary Care Physician: Marie Vickers M.D. MEDICAL IMAGING REPORT This report is preliminary unless electronic signature is present EXAM 2-view chest, 10/03/2016. HISTORY 66-year-old male with short of air and cough for 4 weeks. COMPARISON STUDIES Chest, 09/30/2016. FINDINGS 1 frontal view and 2 lateral views of the chest; 3 total images. There is dense infiltrate in the right lower lobe with mild left basilar infiltrate. Trace bilateral pleural effusions are unchanged. No pneumothorax. Heart size and mediastinum are stable. Left PICC line is stable. IMPRESSION Persistent dense right basilar infiltrate and mild left basilar infiltrates. Small bilateral pleural effusions are unchanged. Dictated by... Len Truong M.D. THIS IS AN ELECTRONICALLY VERIFIED REPORT Len Truong M.D. at 10/05/2016 8:34 AM LISSETH/roel TD: 10/04/2016 10:18 JOB #: [id number] [facility] A Service of [facility] RADIOLOGY TEXT RESULTS PATIENT: JANI ALLEN LOCATION: [facility] 5701-15 : [birth year] UNIT #: [id number] AGE: [address]: Rm Manley MD SEX: M ORDER DR: MEDICAL IMAGING REPORT Page 1 of 1 COPY
--- NOTE | ~2016-09-10 | HP ---
Unit #: [id number] #: [id number] Patient: JANI JARQUIN [id number] [facility]. [place], [place] [address] [id number] Francis MR#: [id number] NAME: JANI JARQUIN. ROOM: [facility] Age: 66 Sex: M Admission Date: 09/10/2016 : 1950 Attending Physician: Rm Manley M.D. Primary Care Physician: Marie Vickers M.D. HISTORY AND PHYSICAL HISTORY OF PRESENT ILLNESS Mr. Jarquin is a 66-year-old make known to us with bronchiectasis, who presents with increasing shortness of air for about three days. This worsened significantly and even though he was going to have an appointment in our office this morning, he worsened to the point this morning that his significant other took him to the hospital. In the emergency room, he was intubated by the ER doc. Surprisingly, although he gets short of air, he really does not cough that much. That is he did not cough a whole lot more in the last few days. He has known bronchiectasis and I have done bronchoscopy on him a couple of times and he typically has very thick purulent mucus. He uses The Vest and he coughs a little bit after The Vest. He did smoke but he quit years ago. I thought she said seven but I may be off, it may have been three. He complained of some right flank pain, not necessarily chest pain. He may have had a low-grade fever according to her. Appetite has been poor for a few days. PAST MEDICAL HISTORY Past medical history is significant for bronchiectasis. He had a CT scan actually back in 2014 with cystic and cylindrical bronchiectasis left lower lobe with cylindrical bronchiectasis, right lower lobe emphysema changes and some fibrotic changes. Other past medical history is significant for COPD although this might be more bronchiectasis than anything else, hypercholesterolemia, hypertension. PAST SURGICAL HISTORY His surgical history is significant for about two bronchoscopies in the last two or three years. MEDICATIONS ON ADMISSION Medications on admission had included: 1. Toprol-XL 50 mg p.o. daily. 2. Calin-Dur 300 mg p.o. daily. 3. ProAir HFA p.r.n. 4. Ambien 10 mg q.h.s. 5. Xanax 0.5 mg t.i.d. 6. Singulair 10 mg p.o. daily. 7. Zetia 10 mg p.o. daily. 8. Abilify 5 mg p.o. daily. 9. Albuterol and ipratropium mini-nebs q.i.d. 10. Effexor XR 150 mg p.o. daily. 11. Breo 100/25 daily. 12. Daliresp 500 mg p.o. daily. 13. Aspirin 81 mg p.o. daily. Unit #: [id number] #: [id number] Patient: JANI JARQUIN 14. Oxycodone 10 mg b.i.d. ALLERGIES No known drug allergies. SOCIAL HISTORY He did smoke and he quit somewhere between three and seven years ago and I think it was closer to three. FAMILY HISTORY According to his significant other, negative for lung disease. REVIEW OF SYSTEMS No nausea or vomiting but appetite has been poor for a few days. He complained of some joint pain. He complained of right flank pain. All other systems are negative or difficult to obtain since they are coming from the significant other. PHYSICAL EXAMINATION GENERAL APPEARANCE: On exam he presents as an older male on a ventilator. VITAL SIGNS: Temperature was t-max 100.8 and now 98.9, pulse 105, respirations 18 with a ventilator set at 16, blood pressure 113/68, saturation in the 90s. NECK: Without adenopathy. HEENT: He is orally intubated. LUNGS: Evaluation of his lungs reveals that his breathing is mechanically ventilated. He has inspiratory and expiratory rhonchi bilaterally throughout and actually worse on the right than the left. HEART: Heart was mildly tachycardic. ABDOMEN: Soft and bowel sounds are present. EXTREMITIES: Without edema. NEUROLOGIC: Neurologically he is sedated. I could not get him to adjunct [employer] but he does move his feet, not necessarily on command. This exam was done with him fully sedated. DIAGNOSTIC STUDIES IMAGING: Chest x-ray to my exam reveals patchy bilateral infiltrates throughout, seemingly worse in the right lower lobe. LABORATORY: On AC 16, 100%, 650 and 5 of PEEP he had a pH of 7.36, pCO2 of 53, pO2 of 188. His white blood cell count was 24.7, hemoglobin and hematocrit 11.5 and 34.8 and 363,000 platelets. Serum chemistry is significant for a BUN of 23, creatinine 1, glucose is 137. IMPRESSION 1. Vsydl-qq-oxzvwop hypoxemic and hypercapnic respiratory failure. 2. Acute exacerbation of bronchiectasis. 3. Pneumonia, possibly right lower lobe, Gram negative, likely due to Pseudomonas. 4. Chronic obstructive pulmonary disease with exacerbation. PLAN He will be treated with cefepime and looking back at previous cultures with Pseudomonas, cefepime should be sufficient. I will give him IV Solu-Medrol. He will need bronchoscopy and I will try to get this done tomorrow morning if possible. Unit #: [id number] #: [id number] Patient: JANI JARQUIN Dictated by Idalia Ruiz/alexandr TD: 09/10/2016 18:31 JOB #: [id number] HISTORY AND PHYSICAL X Rm Manley MD HISTORY AND PHYSICAL
--- NOTE | ~2016-09-10 | DS ---
Unit #: [id number] #: [id number] Patient: JANI ALLEN [id number] [facility] [address] [place], [place] [address] [id number] I MR#: [id number] NAME: JANI ALLEN ROOM: 577 Age: 66 Sex: M Admission Date: 09/10/2016 : 1950 Discharge Date: 10/07/2016 Attending Physician: Rm Manley M.D. Primary Care Physician: Marie Vickers M.D. DISCHARGE SUMMARY REASON FOR ADMISSION Chronic obstructive pulmonary disease exacerbation. ADMITTING DIAGNOSES 1. Bronchiectasis exacerbation. 2. Acute respiratory failure. 3. Pneumonia. 4. Chronic obstructive pulmonary disease. 5. Hyponatremia. 6. Chronic aspiration. 7. Aspiration pneumonia. 8. Percutaneous endoscopic gastrostomy tube placement. CONSULTANTS 1. Dr. Palomo Rivas, Nephrology. 2. Dr. Clyde Paz, Gastroenterology, for PEG placement. 3. Dr. Rm Manley, Pulmonology, for a diagnosis of bronchiectasis. HISTORY OF PRESENT ILLNESS The patient is a 66-year-old gentleman with bronchiectasis who presented with increasing shortness of air for approximately three days. Patient's shortness of breath worsened significantly to the point where significant other took him to the hospital. Patient was intubated by the emergency room doctor. Patient did not have a significant cough despite having bronchiectasis and very thick purulent mucus. Patient uses the vest at home, and it helps him with expectoration. Patient has a history of smoking but quit three years prior to admission. Patient was having some chest tightness, but otherwise, no other real symptoms prior to being intubated. HOSPITAL COURSE Mental status. The patient awoke on approximately hospital day six or seven. When patient was taken off sedation, mental status improved significantly, and patient has, despite being somewhat hypercapnic, never returned to his previous state. Respiratory. Patient received a bronchoscopy. The cultures had grown out Pseudomonas aeruginosa in the past. This time bronchial wash and sputum cultures were negative. Hyponatremia. Nephrology was consulted. It was thought to be due to a combination of dehydration and SIADH. The patient was hydrated, and then he improved. He was able to tolerate PEG feeds without any issue. Unit #: [id number] #: [id number] Patient: JANI ALLEN Aspiration. Patient was having worsening shortness of breath and was readmitted to the unit very shortly. This was likely secondarily due to significant aspiration. Patient improved dramatically after that. He had a swallow study which showed praveena aspiration. Therefore, a PEG tube was placed. Since then, patient has improved gradually. However, due to weakness, he has to go to a rehab facility. Therefore, we are admitting him to [facility]. DISCHARGE MEDICATIONS 1. DuoNebs 4 times daily and q.2 hours p.r.n. 2. Prednisone 20 mg x2 days, 10 mg x2 days, 5 mg x2 days. 3. Lovenox 40 subcutaneous every 24 hours. 4. Venlafaxine only Tuesday, Tuesday, and Tuesday. 5. Zetia 10 mg daily. 6. Aripiprazole 5 mg daily. 7. Zolpidem 5 mg at bedtime p.r.n. sleep. 8. Xanax 0.5 mg t.i.d. p.r.n. 9. Metoprolol 50 mg per PEG twice daily. 10. MiraLAX 17 grams in 8 ounces daily p.r.n. constipation. 11. Furosemide 20 mg every morning. 12. Sliding scale insulin. 13. Singulair 10 mg daily. 14. Florastor 250 mg twice daily. 15. Aspirin 81 mg daily. 16. Oxycodone 10 mg q.4 hours p.r.n. moderate to severe pain. 17. Pantoprazole 40 mg daily. 18. Roflumilast 500 mcg daily. FOLLOWUP 1. With Dr. Manley within two to four weeks. 2. With GI to insure stability of the PEG. 3. With Physical Therapy at the rehab facility. Once he is done, he would likely benefit from outpatient pulmonary rehab. DIET PEG tube feeds. ACTIVITY Per Physical Therapy. Dictated by... Henry Francis M.D. Peter TD: 10/07/2016 17:01 JOB #: [id number] DISCHARGE SUMMARY Page 1 of 1 X Gerber Francis MD X DISCHARGE SUMMARY
--- NOTE | ~2016-09-10 | CR72 ---
[facility] A Service of [facility] & [facility] RADIOLOGY TEXT RESULTS PATIENT: JANI ALLEN LOCATION: [facility] CICCU2-11 : [birth year] UNIT #: [id number] AGE: [address]: Rm Manley MD SEX: M ORDER DR: [id number] [facility] [address] [place], [place] [address] [id number] MR#: [id number] Acc #: [id number] NAME: JANI ALLEN. : 1950 SEX: M STUDY DATE/TIME: 09/10/2016 6:38 UNIT: [facility] ROOM: STUDY DESCRIPTION: CR Chest Single View Portable Attending Physician: Ron Gutierrez M.D. Ordering Physician: Ron Gutierrez M.D. Primary Care Physician: Marie Vickers M.D. MEDICAL IMAGING REPORT This report is preliminary unless electronic signature is present EXAM Portable chest HISTORY Shortness of air. Respiratory distress. Endotracheal tube placement. FINDINGS This portable view of the chest is compared with one from a short while ago and an endotracheal tube has been added. The tip is 3.0 cm above the maximino. Right lower lobe dense infiltrate and pulmonary fibrosis are stable. Dictated by... Ritchie Arevalo M.D. THIS IS AN ELECTRONICALLY VERIFIED REPORT Ritchie Arevalo M.D. at 09/10/2016 10:25 AM ERICKA/dora TD: 09/10/2016 09:04 JOB #: [id number] MEDICAL IMAGING REPORT COPY
--- NOTE | ~2016-09-10 | CR72 ---
[facility] A Service of [facility] & [facility] RADIOLOGY TEXT RESULTS PATIENT: JANI ALLEN LOCATION: [address] : [birth year] UNIT #: [id number] AGE: [address]: Rm Manley MD SEX: M ORDER DR: [id number] [facility] [address] [place], [place] [address] [id number] I MR#: [id number] Acc #: [id number] NAME: JANI ALLEN : 1950 SEX: M STUDY DATE/TIME: 09/14/2016 6:10 UNIT: [facility] ROOM: [facility] STUDY DESCRIPTION: CR Chest Single View Portable Attending Physician: Rm Manley M.D. Ordering Physician: Rm Manley M.D. Primary Care Physician: Marie Vickers M.D. MEDICAL IMAGING REPORT This report is preliminary unless electronic signature is present EXAM Portable chest, 09/14 INDICATION Respiratory failure, shortness of air. FINDINGS AP portable chest is compared with 09/12/2016. ET tube mid trachea. Left arm PICC at the right atrial level. Tip of the feeding tube is in the gastric fundus. Cardiomegaly is stable. There are continued infiltrates in the bases. There is slight improvement in aeration of the right mid lung. Small bilateral pleural effusions are present. There is no pneumothorax. Dictated by... Javier Hwang Jr., M.D. THIS IS AN ELECTRONICALLY VERIFIED REPORT Javier Hwang Jr., M.D. at 09/14/2016 3:50 PM MATHEW/dora TD: 09/14/2016 09:12 JOB #: [id number] MEDICAL IMAGING REPORT COPY
--- NOTE | ~2016-09-10 | CO ---
Unit #: [id number] #: [id number] Patient: JANI ALLEN [id number] [facility]. [id number] [facility]. [place], [place] [address] [id number] Francis MR#: [id number] NAME: JANI ALLEN. ROOM: 577 Age: 66 Sex: M Admission Date: 09/10/2016 : 1950 Attending Physician: Rm Manley M.D. Primary Care Physician: Marie Vickers M.D. Consultation Date: 09/22/2016 CONSULTATION REPORT JOB NOTE: CC: [facility]. PRIMARY CARE PHYSICIAN Formerly [facility]. REASON FOR CONSULTATION Dysphagia. HISTORY OF PRESENT ILLNESS Mr. Serrano is a very pleasant 66-year-old white gentleman. The patient has longstanding history of left lower lobe and right lower lobe cylindrical bronchiectasis. He has been admitted with acute exacerbation of his bronchiectatic symptoms in the form of cough and productive sputum. The patient had a swallow evaluation and was found to have significant aspiration and oropharyngeal dysphagia. I have been asked to see him because he mentions trouble swallowing with both solids and liquids, more so the liquids. There is no history of any significant weight loss. PAST MEDICAL HISTORY Significant for history of longstanding bronchiectasis and also history of COPD, hyperlipidemia, hypertension. PAST SURGICAL HISTORY Included 2 bronchoscopies in the last 2 or 3 years. MEDICATIONS At home included the following; Toprol-XL, Calin-Dur, ProAir, Ambien, Xanax, Singulair, Zetia, Abilify, albuterol, ipratropium, Effexor, Breo, Daliresp, aspirin, oxycodone. ALLERGIES He has no known drug allergies. SOCIAL HISTORY Smoked most of his adult life. He quit smoking 3 to 7 years ago. He does not drink alcohol. FAMILY HISTORY None of colon, pancreatic cancer, or liver disease. REVIEW OF SYSTEMS Detailed review of organ system does not reveal any recent weight loss. No history of fever, chills, or rigors. No history of headache, seizures, Unit #: [id number] #: [id number] Patient: JANI ALLEN chest pain, or syncope. No history of nausea, vomiting, or diarrhea. No history of abdominal pain. The patient does have cough and expectoration. No history of skin rash, aphthous ulcer in mouth, or reactive arthritis. PHYSICAL EXAMINATION GENERAL: He is alert and oriented, and is on Oxymizer. VITAL SIGNS: Stable with a temperature of 98.0, pulse 85 per minute and regular, respiratory rate is 18, blood pressure 135/60. He weighs 180 pounds and appears well nourished. HEENT: He has no pallor, icterus, lymphadenopathy, or peripheral edema. CARDIOVASCULAR: Normal heart sounds. No murmurs on auscultation. LUNGS: Reveal normal breath sounds. Good air entry. ABDOMEN: Soft and nontender. Liver and spleen are not palpable. Bowel sounds normal. DIAGNOSTIC STUDIES LABORATORY RESULTS: [place] [address] with left shift and platelet count of 768. Serum chemistry shows normal BUN, creatinine, and electrolytes. Albumin is 2.4. The patient does also have underlying iron deficiency and he is being seen Dr. Luther for the latter. IMAGING STUDIES: I also noted a swallow evaluation and I find that he has higher risk for aspiration. CLINICAL IMPRESSION The patient with what seemed like oropharyngeal dysphagia. A diagnostic upper endoscopy is warranted to look for any potential source of dysphagia in this gentleman particularly Hilary esophagitis. A stricture which would cause persistent symptoms as less likely. If the upper endoscopy is normal, consideration will be given for placement of percutaneous endoscopic gastrostomy tube and this has been discussed at length with the patient and his family. Thank you very much for asking me to see this pleasant gentleman. I appreciate the consult. Dictated by... Idalia Myers/rudolph TD: 09/23/2016 02:29 JOB #: [id number] CONSULTATION REPORT X Clyde Paz MD X CONSULTATION REPORT
--- NOTE | ~2016-09-10 | FU ---
[facility] Nutrition Therapy DATE: 09/28/16 Patient: JANI ALLEN Physician: ELIN Address: [address] Room/Bed: [address] [place] [address], Zip: [place] [address] Admit Date: 09/10/16 Date of : [birth year] Height: 6 0 Weight: 176 79.9 NUTRITION MONITORING/FOLLOW-UP: Reason: PT SEEN FOR FOLLOW-UP/ENTERAL NUTRITION SUPPORT DX: ACUTE RESP FAILURE, PNA Anthropometrics: 6'0", WT: 176# (80 KG), BMI: 23.9 -ADMIT WEIGHT: 190#? Labs: GLU: 151, ALB: 2.7, NA+:130 Meds: PREDNISONE, D5%, MIRALAX, NOVOLOG, PROTONIX, LOPRESSOR I&O's: [id number]/[id number] Skin: NO KNOWN SKIN ISSUES Estimated Nutrition Needs: [phone] KCAL 103-130 G PRO Assessment: CHART REVIEWED AND EVENTS NOTED. PT SEEN FOR ENTERAL NUTRITION SUPPORT FOLLOW-UP. PT RECEIVING ALTERNATIVE NUTRITION SUPPORT OF JEVITY 1.5 @ 70 ML/HR. PER RN AND CHART, PT TOLERATING TUBE FEEDS, NOTING NO ISSUES AT THIS TIME. PT REPORTS NO C/O N/V/D. NO PLANS IN PLACE FOR D/C HOME AT THIS TIME. PT REPORTED NO DIET QUESTIONS AT THIS TIME. RD TO CONTINUE TO FOLLOW. Dx: INADEQUATE ORAL INTAKE R/T DYSPHAGIA AEB NEED FOR ALTERNATIVE NUTRITION SUPPORT. ACTIVE Intervention: 1. ENTERAL NUTRITION SUPPORT Monitoring, Evaluation and Goals: GOALS MET Recommendations: 1. CONTINUE CURRENT ENTERAL NUTRITION SUPPORT OF JEVITY 1.5 @ 70 ML/HR (GOAL RATE) 2. IF PT TO D/C HOME, RECOMMEND BOLUS ENTERAL NUTRITION SUPPORT OF JEVITY 1.5/7 CANS DAILY -RECOMMEND 2 CANS BREAKFAST, 2 CANS LUNCH, 2 CANS DINNER & HS CAN RD WILL F/U PER PROTOCOL PT IS MODERATELY COMPROMISED Respectfully, [facility] Nutrition Therapy DATE: 09/28/16 Patient: JANI ALLEN Physician: ELIN Address: [address] Room/Bed: [address] [place] [address], Zip: [place] [address] Admit Date: 09/10/16 Date of : [birth year] Height: 6 0 Weight: 176 79.9 AINSLEY MCCARTHY MS, RD, LD [facility] cc: client file
--- NOTE | ~2016-09-10 | CR7 ---
[facility] A Service of [facility] & [facility] RADIOLOGY TEXT RESULTS PATIENT: JANI ALLEN LOCATION: [address] : [birth year] UNIT #: [id number] AGE: [address]: Rm Manley MD SEX: M ORDER DR: [id number] [facility] [address] [place], [place] [address] [id number] I MR#: [id number] Acc #: [id number] NAME: JANI ALLEN : 1950 SEX: M STUDY DATE/TIME: 09/10/2016 11:19 UNIT: [facility] ROOM: [facility] STUDY DESCRIPTION: CR Abdomen Single AP View Attending Physician: Rm Manley M.D. Ordering Physician: Rm Manley M.D. Primary Care Physician: Marie Vickers M.D. MEDICAL IMAGING REPORT This report is preliminary unless electronic signature is present EXAM Portable abdomen, 09/10/2016. HISTORY Dobbhoff tube placement. FINDINGS A supine view of the abdomen shows a Dobbhoff tube tip is in the stomach. The bowel gas pattern is normal. There is no comparison. Dictated by... Ritchie Arevalo M.D. THIS IS AN ELECTRONICALLY VERIFIED REPORT Ritchie Arevalo M.D. at 09/10/2016 3:57 PM ERICKA/roel TD: 09/10/2016 14:14 JOB #: [id number] MEDICAL IMAGING REPORT COPY
--- NOTE | ~2016-09-10 | OR ---
Unit #: [id number] #: [id number] Patient: JANI ALLEN [id number] [facility]. [place], [place] [address] [id number] I MR#: [id number] NAME: JANI ALLEN. ROOM: 577 Date of Procedure: 09/24/2016 Admission Date: 09/10/2016 Surgeon: Clyde Paz M.D. : 1950 Attending Physician: Rm Manley M.D. Primary Care Physician: Marie Vickers M.D. OPERATIVE REPORT PRIMARY CARE PHYSICIAN Marie Vickers M.D. PREOPERATIVE DIAGNOSES The patient has high-grade oropharyngeal dysphagia and came for elective percutaneous endoscopic gastrostomy placement. He has high risk of aspiration as per swallow study. PROCEDURES PERFORMED Upper gastrointestinal endoscopy and percutaneous endoscopic gastrostomy placement. POSTOPERATIVE DIAGNOSIS Uncomplicated placement of the percutaneous endoscopic gastrostomy tube. RECOMMENDATIONS Please see the chart for postoperative care of the PEG site and feeding instructions. SEDATION USED MAC. DESCRIPTION OF PROCEDURE Following detailed explanation of the potential risks and complications of an upper endoscopy and a PEG placement namely perforation, bleeding, and complication related to sedation, the patient was brought to GI lab and laid in the supine position with the head of the bed was elevated. A bite block was placed. Incremental conscious sedation using MAC was given. Lubricated tip of the Olympus video upper endoscope was passed through the bite block into the proximal esophagus under direct vision. The entire esophageal mucosa was examined and appeared normal. The scope was then advanced into the gastric cavity and the latter was insufflated. Mucosa of the fundus, body, and antrum was examined and appeared unremarkable. Pylorus was intubated with visualization of the normal duodenal bulb and second and third part of the duodenum. Upon withdrawal and retroflexion, incisura, cardia, and greater curve was examined and no additional findings were noted. Using transillumination and finger indentation, prospective PEG site was elected. The area was cleaned and draped with Betadine and 1% lidocaine infiltrative anesthesia was given. Using Seldinger technique, guidewire was placed in the gastric cavity. The latter was then grasped using a Unit #: [id number] #: [id number] Patient: BUCHTER,JANI A polypectomy snare, brought out through the oral cavity. A 20-Burmese PEG tube was railroaded over the guidewire and brought out through the stab incision. Appropriate feeding attachments and securing device were applied. Relook endoscopy showed excellent position in mushroom of PEG tube. The patient tolerated the procedure without any postprocedure complications. Dictated by... Idalia Myers/rudolph TD: 09/24/2016 12:27 JOB #: [id number] OPERATIVE REPORT X Clyde Paz MD X PROCEDURE OPERATIVE NOTE
--- NOTE | ~2016-09-10 | CR72 ---
[facility] A Service of [facility] & [facility] RADIOLOGY TEXT RESULTS PATIENT: JANI ALLEN LOCATION: [place] [id number] : 49 UNIT #: [id number] AGE: [address]: Rm Manley MD SEX: M ORDER DR: [id number] [facility] [address] [place], [place] [address] [id number] I MR#: [id number] Acc #: [id number] NAME: JANI ALLEN. : 1950 SEX: M STUDY DATE/TIME: 09/18/2016 04:56 UNIT: [facility] ROOM: [facility] STUDY DESCRIPTION: CR Chest Single View Portable Attending Physician: Rm Manley M.D. Ordering Physician: Ismael Dunbar M.D. Primary Care Physician: Marie Vickers M.D. MEDICAL IMAGING REPORT This report is preliminary unless electronic signature is present EXAM Portable chest, 09/18 at 04:56 INDICATION Respiratory failure. Ventilator patient. FINDINGS AP portable chest is compared with 09/17/2016. The feeding tube has been removed. Left arm PICC in the SVC. Cardiomegaly is stable. Emphysema is again seen. Infiltrates in the bases are stable and presumably reflect pneumonia. There are trace bilateral effusions. There is no pneumothorax. Dictated by... Javier Hwang Jr., M.D. THIS IS AN ELECTRONICALLY VERIFIED REPORT Javier Hwang Jr., M.D. at 09/18/2016 11:01 PM MATHEW/dora TD: 09/18/2016 18:24 JOB #: [id number] MEDICAL IMAGING REPORT COPY
[~2016-09-10 06:29] MED LIST: ABILIFY5 MG PO; ALBUTEROL0.83 MG/ML INH; AMBIEN10 MG PO; ASPIRIN81 MG PO; BREO ELLIPTA 21 EACH INH; CEFEPIME-D2 GM/50 ML IV; DALIRESP500 MCG PO; EFFEXOR XR PO; EFFEXOR XR150 MG PO; FLONASE 0.05% N16 G1 INH; IPRATROPIUM0.2 MG/ML NEB; LEVAQUIN750 M1 PO; OXYCODONE HCL10 MG PO; PERCOCET 10/3251 TAB PO; PERCOCET10 PO; PREDNISONE10 MG/DOSE PO; PROAIR HFA8.5 GM INH; SINGULAIR PO; THEO-DUR300 MG PO; TOPROL XL100 MG PO; XANAX0.5 M1 PO; ZETIA PO
[2016-09-10 06:41] LABS: BASOPHIL% 0.1 % (0-2.5); EOSINOPHIL# 0.1 X10e3 (0-0.7); EOSINOPHIL% 0.3 % (0.0-7.0); HEMATOCRIT 34.8 % (38.0-50.0); HEMOGLOBIN 11.5 gm/dL (13.0-16.0); LYMPHOCYTE# 1.8 X10e3 (1.0-3.5); LYMPHOCYTE% 7.2 % (17.0-45.0); MEAN CELL VOLUME 86.1 FL (83-96); MEAN CORPUSCULAR HEMOGLOBIN 28.4 PG (28-34); MEAN PLATELET VOLUME 7.4 FL (6.5-11.5); MONOCYTE# 1.6 X10e3 (0-1.0); MONOCYTE% 6.4 % (3.0-12.0); NEUTROPHIL# 21.2 X10e3 (1.5-7.1); PLATELET COUNT 636 X10e3 (140-420); RED BLOOD COUNT 4.05 X10e (3.90-5.60); RED CELL DISTRIBUTION WIDTH 15.2 % (11.0-15.5); WHITE BLOOD COUNT 24.7 X10e3 (4.0-10.5)
[2016-09-10 06:59] LABS: INR 1.2; PARTIAL THROMBOPLASTIN TIME 34.7 SECONDS (23.5-31.3); PROTHROMBIN TIME (PATIENT) 12.4 SECONDS (9.6-11.5)
[2016-09-10 07:05] LABS: ALBUMIN SERUM 2.5 g/dL (3.5-5.0); ALKALINE PHOSPHATASE 123 U/L (32-92); ALT (SGPT) 16 U/L (10-40); AMYLASE 12 U/L (0-46); AST (SGOT) 17 U/L (10-42); BILIRUBIN, DIRECT 0.2 mg/dL (0.0-0.2); BILIRUBIN,INDIRECT 0.4 mg/dL (0.0-0.9); BILIRUBIN,TOTAL 0.6 mg/dL (0.2-2.0); BLOOD UREA NITROGEN 23 mg/dL (9-23); CALCIUM SERUM 9.5 mg/dL (8.4-10.2); CARBON DIOXIDE 29 mmol/L (22-31); CHLORIDE 90 mmol/L (100-111); GLOM FILT RATE Estimated ABOVE60 mL/min (>60); GLUCOSE FASTING 137 mg/dL (70-110); LIPASE 11 U/L (22-51); POTASSIUM 4.4 mmol/L (3.5-5.1); PROTEIN TOTAL SERUM 8.5 g/dL (6.0-8.3); SODIUM 135 mmol/L (135-145)
[2016-09-10 07:15] LABS: URINE SOURCE CLEAN CATCH
[2016-09-10 07:20] LABS: DIFF IND YES
[2016-09-10 07:26] LABS: PLATELET ESTIMATE INCREASED (NORMAL)
[2016-09-10 07:29] LABS: TEAR DROP CELLS PRESENT
[2016-09-10 07:30] LABS: URINE APPEARANCE CLEAR; URINE BILIRUBIN NEG (NEG); URINE BLOOD NEG (NEG); URINE COLOR DK YELLOW; URINE GLUCOSE NEG (NEG); URINE KETONE NEG (NEG); URINE LEUKOCYTE ESTERASE NEG (NEG); URINE NITRATE NEG (NEG); URINE PH 5.5 (5-8); URINE PROTEIN 1+ (NEG); URINE SPECIFIC GRAVITY 1.029 (1.003-1.035)
[2016-09-10 07:32] LABS: URBCS1 AUWI 0-2 /[HPF] (0-2); URINE BACTERIA AUWI NEG (NEGATIVE); URINE SQUAMOUS EPITHELIAL CELL NONE SEEN /[HPF]; UWBCS1 AUWI 0-2 (0-5)
[2016-09-10 07:37] LABS: CULTURE INDICATED? NO
[2016-09-10 08:28] LABS: ARTERIAL BLD GAS O2 SATURATION 97.7 % (90.0-100.0); ARTERIAL BLOOD GAS CARBOXY HB 0.1 %sat (0.0-9.0); ARTERIAL BLOOD GAS HCO3 30.1 mmol/L; ARTERIAL BLOOD GAS MET HB 1.3 %sat (0.0-2.0); ARTERIAL BLOOD GAS pH 7.361 (7.350-7.450)
[2016-09-10 08:29] LABS: ARTERIAL BLOOD GAS ALLEN TEST NORMAL; ARTERIAL BLOOD GAS ART SITE LEFT RADIAL; ARTERIAL BLOOD GAS PCO2 53.2 mmHg (35.0-45.0); ARTERIAL BLOOD GAS VENT MODE A/C; ARTERIAL DRAW? YES
[2016-09-11 04:39] LABS: ARTERIAL BLD GAS O2 SATURATION 93.2 % (90.0-100.0); ARTERIAL BLOOD GAS HCO3 32.6 mmol/L; ARTERIAL BLOOD GAS PCO2 49.8 mmHg (35.0-45.0); ARTERIAL BLOOD GAS pH 7.425 (7.350-7.450)
[2016-09-11 04:54] LABS: ARTERIAL BLOOD GAS ALLEN TEST NORMAL; ARTERIAL BLOOD GAS ART SITE RIGHT RADIAL; ARTERIAL BLOOD GAS PO2 74.9 mmHg (80.0-100); ARTERIAL BLOOD GAS VENT MODE AC; ARTERIAL DRAW? YES
[2016-09-11 05:27] LABS: BASOPHIL% 0.1 % (0-2.5); HEMATOCRIT 25.6 % (38.0-50.0); LYMPHOCYTE# 0.4 X10e3 (1.0-3.5); LYMPHOCYTE% 2.9 % (17.0-45.0); MEAN CELL VOLUME 86.1 FL (83-96); MEAN CORPUSCULAR HGB CONC 32.6 g/dL (30-36); MEAN PLATELET VOLUME 7.4 FL (6.5-11.5); MONOCYTE# 0.5 X10e3 (0-1.0); MONOCYTE% 3.8 % (3.0-12.0); NEUTROPHIL# 12.5 X10e3 (1.5-7.1); NEUTROPHIL% 93.2 % (40-75); PLATELET COUNT 512 X10e3 (140-420); RED BLOOD COUNT 2.98 X10e (3.90-5.60); RED CELL DISTRIBUTION WIDTH 15.1 % (11.0-15.5); WHITE BLOOD COUNT 13.4 X10e3 (4.0-10.5)
[2016-09-11 05:28] LABS: DIFF IND NO; HEMOGLOBIN 8.3 gm/dL (13.0-16.0)
[2016-09-11 06:12] LABS: BLOOD UREA NITROGEN 15 mg/dL (9-23); CALCIUM SERUM 7.6 mg/dL (8.4-10.2); CARBON DIOXIDE 28 mmol/L (22-31); CHLORIDE 103 mmol/L (100-111); CREATININE SERUM 0.6 mg/dL (0.6-1.4); GLOM FILT RATE Estimated ABOVE60 mL/min (>60); GLUCOSE FASTING 154 mg/dL (70-110); POTASSIUM 3.9 mmol/L (3.5-5.1); SODIUM 138 mmol/L (135-145)
[2016-09-11 06:30] LABS: BASOPHIL% 0.1 % (0-2.5); HEMATOCRIT 28.1 % (38.0-50.0); LYMPHOCYTE# 0.3 X10e3 (1.0-3.5); LYMPHOCYTE% 2.6 % (17.0-45.0); MEAN CELL VOLUME 85.7 FL (83-96); MEAN CORPUSCULAR HEMOGLOBIN 27.7 PG (28-34); MEAN CORPUSCULAR HGB CONC 32.4 g/dL (30-36); MEAN PLATELET VOLUME 6.9 FL (6.5-11.5); MONOCYTE# 0.4 X10e3 (0-1.0); MONOCYTE% 3.4 % (3.0-12.0); NEUTROPHIL# 11.9 X10e3 (1.5-7.1); NEUTROPHIL% 93.9 % (40-75); PLATELET COUNT 514 X10e3 (140-420); RED BLOOD COUNT 3.28 X10e (3.90-5.60); RED CELL DISTRIBUTION WIDTH 15.4 % (11.0-15.5); WHITE BLOOD COUNT 12.7 X10e3 (4.0-10.5)
[2016-09-11 06:31] LABS: DIFF IND NO; HEMOGLOBIN 9.1 gm/dL (13.0-16.0)
[2016-09-11 11:14] LABS: BODY FLUID APPEARANCE HAZY; BODY FLUID SOURCE BRONCHIAL LAVAGE
[2016-09-12 03:47] LABS: ARTERIAL BLD GAS O2 SATURATION 97.2 % (90.0-100.0); ARTERIAL BLOOD GAS HCO3 31.3 mmol/L; ARTERIAL BLOOD GAS MET HB 0.8 %sat (0.0-2.0); ARTERIAL BLOOD GAS PCO2 47.2 mmHg (35.0-45.0)
[2016-09-12 03:50] LABS: ARTERIAL BLOOD GAS ALLEN TEST NORMAL; ARTERIAL BLOOD GAS ART SITE RIGHT RADIAL; ARTERIAL BLOOD GAS DELIVERY VENT; ARTERIAL BLOOD GAS VENT MODE A/C; ARTERIAL DRAW? YES
[2016-09-12 04:47] LABS: BASOPHIL% 0.1 % (0-2.5); HEMATOCRIT 27.5 % (38.0-50.0); HEMOGLOBIN 8.8 gm/dL (13.0-16.0); LYMPHOCYTE# 0.4 X10e3 (1.0-3.5); LYMPHOCYTE% 2.7 % (17.0-45.0); MEAN CELL VOLUME 85.7 FL (83-96); MEAN CORPUSCULAR HEMOGLOBIN 27.3 PG (28-34); MEAN CORPUSCULAR HGB CONC 31.9 g/dL (30-36); MEAN PLATELET VOLUME 7.2 FL (6.5-11.5); MONOCYTE# 0.6 X10e3 (0-1.0); MONOCYTE% 4.2 % (3.0-12.0); NEUTROPHIL# 13.1 X10e3 (1.5-7.1); PLATELET COUNT 525 X10e3 (140-420); RED BLOOD COUNT 3.21 X10e (3.90-5.60); RED CELL DISTRIBUTION WIDTH 15.1 % (11.0-15.5)
[2016-09-12 04:49] LABS: DIFF IND NO
[2016-09-12 05:07] LABS: BLOOD UREA NITROGEN 17 mg/dL (9-23); BUN/CREATININE RATIO 24.28; CALCIUM SERUM 7.9 mg/dL (8.4-10.2); CARBON DIOXIDE 29 mmol/L (22-31); CHLORIDE 107 mmol/L (100-111); CREATININE SERUM 0.7 mg/dL (0.6-1.4); GLOM FILT RATE Estimated ABOVE60 mL/min (>60); GLUCOSE FASTING 235 mg/dL (70-110); POTASSIUM 3.7 mmol/L (3.5-5.1); SODIUM 137 mmol/L (135-145)
[2016-09-13 04:22] LABS: ARTERIAL BLD GAS O2 SATURATION 97.5 % (90.0-100.0); ARTERIAL BLOOD GAS CARBOXY HB 0.1 %sat (0.0-9.0); ARTERIAL BLOOD GAS HCO3 36.7 mmol/L; ARTERIAL BLOOD GAS MET HB 1.3 %sat (0.0-2.0); ARTERIAL BLOOD GAS pH 7.473 (7.350-7.450)
[2016-09-13 04:23] LABS: ARTERIAL BLOOD GAS ALLEN TEST NORMAL; ARTERIAL BLOOD GAS ART SITE RIGHT RADIAL; ARTERIAL BLOOD GAS DELIVERY VENT; ARTERIAL BLOOD GAS VENT MODE A/C; ARTERIAL DRAW? YES
[2016-09-13 05:30] LABS: BASOPHIL% 0.1 % (0-2.5); HEMATOCRIT 28.1 % (38.0-50.0); LYMPHOCYTE# 0.6 X10e3 (1.0-3.5); LYMPHOCYTE% 3.5 % (17.0-45.0); MEAN CELL VOLUME 85.6 FL (83-96); MEAN CORPUSCULAR HEMOGLOBIN 27.6 PG (28-34); MEAN CORPUSCULAR HGB CONC 32.2 g/dL (30-36); MEAN PLATELET VOLUME 7.3 FL (6.5-11.5); MONOCYTE# 0.6 X10e3 (0-1.0); MONOCYTE% 3.9 % (3.0-12.0); NEUTROPHIL# 15.2 X10e3 (1.5-7.1); NEUTROPHIL% 92.5 % (40-75); PLATELET COUNT 567 X10e3 (140-420); RED BLOOD COUNT 3.28 X10e (3.90-5.60); RED CELL DISTRIBUTION WIDTH 15.3 % (11.0-15.5); WHITE BLOOD COUNT 16.5 X10e3 (4.0-10.5)
[2016-09-13 05:33] LABS: DIFF IND YES
[2016-09-13 06:21] LABS: BLOOD UREA NITROGEN 25 mg/dL (9-23); BUN/CREATININE RATIO 31.25; CALCIUM SERUM 8.4 mg/dL (8.4-10.2); CARBON DIOXIDE 33 mmol/L (22-31); CHLORIDE 103 mmol/L (100-111); CREATININE SERUM 0.8 mg/dL (0.6-1.4); GLOM FILT RATE Estimated ABOVE60 mL/min (>60); GLUCOSE FASTING 178 mg/dL (70-110); POTASSIUM 4.2 mmol/L (3.5-5.1); SODIUM 144 mmol/L (135-145)
[2016-09-13 07:00] LABS: ANISOCYTOSIS SL; HYPOCHROMIA SL; TARGET CELLS MOD
[2016-09-13 07:01] LABS: PLATELET ESTIMATE INCREASED (NORMAL)
[2016-09-14 05:01] LABS: ARTERIAL BLD GAS O2 SATURATION 94.8 % (90.0-100.0); ARTERIAL BLOOD GAS HCO3 37.9 mmol/L; ARTERIAL BLOOD GAS MET HB 1.3 %sat (0.0-2.0); ARTERIAL BLOOD GAS PO2 80.3 mmHg (80.0-100); ARTERIAL BLOOD GAS pH 7.456 (7.350-7.450)
[2016-09-14 05:03] LABS: ARTERIAL BLOOD GAS ALLEN TEST NORMAL; ARTERIAL BLOOD GAS ART SITE LEFT RADIAL; ARTERIAL BLOOD GAS DELIVERY VENT; ARTERIAL BLOOD GAS PCO2 53.7 mmHg (35.0-45.0); ARTERIAL BLOOD GAS VENT MODE AC; ARTERIAL DRAW? YES
[2016-09-15 05:58] LABS: BASOPHIL# 0.1 X10e3 (0-0.3); BASOPHIL% 0.3 % (0-2.5); HEMOGLOBIN 9.1 gm/dL (13.0-16.0); LYMPHOCYTE# 0.4 X10e3 (1.0-3.5); LYMPHOCYTE% 2.5 % (17.0-45.0); MEAN CELL VOLUME 85.4 FL (83-96); MEAN CORPUSCULAR HEMOGLOBIN 27.8 PG (28-34); MEAN CORPUSCULAR HGB CONC 32.6 g/dL (30-36); MEAN PLATELET VOLUME 7.3 FL (6.5-11.5); MONOCYTE# 0.4 X10e3 (0-1.0); MONOCYTE% 2.4 % (3.0-12.0); NEUTROPHIL# 16.3 X10e3 (1.5-7.1); NEUTROPHIL% 94.8 % (40-75); PLATELET COUNT 591 X10e3 (140-420); RED BLOOD COUNT 3.28 X10e (3.90-5.60); RED CELL DISTRIBUTION WIDTH 15.2 % (11.0-15.5); WHITE BLOOD COUNT 17.1 X10e3 (4.0-10.5)
[2016-09-15 06:02] LABS: DIFF IND NO
[2016-09-15 07:03] LABS: ALBUMIN SERUM 1.7 g/dL (3.5-5.0); ALKALINE PHOSPHATASE 93 U/L (32-92); ALT (SGPT) 41 U/L (10-40); AST (SGOT) 28 U/L (10-42); BILIRUBIN,TOTAL 0.5 mg/dL (0.2-2.0); BLOOD UREA NITROGEN 29 mg/dL (9-23); BUN/CREATININE RATIO 48.33; CARBON DIOXIDE 35 mmol/L (22-31); CHLORIDE 97 mmol/L (100-111); CREATININE SERUM 0.6 mg/dL (0.6-1.4); GLOM FILT RATE Estimated ABOVE60 mL/min (>60); GLUCOSE FASTING 159 mg/dL (70-110); PROTEIN TOTAL SERUM 5.3 g/dL (6.0-8.3); SODIUM 138 mmol/L (135-145)
[2016-09-15 09:58] LABS: ARTERIAL BLD GAS O2 SATURATION 91.3 % (90.0-100.0); ARTERIAL BLOOD GAS HCO3 35.4 mmol/L; ARTERIAL BLOOD GAS PCO2 48.3 mmHg (35.0-45.0); ARTERIAL BLOOD GAS pH 7.473 (7.350-7.450)
[2016-09-15 10:01] LABS: ARTERIAL BLOOD GAS ART SITE RIGHT RADIAL; ARTERIAL BLOOD GAS DELIVERY VENT; ARTERIAL BLOOD GAS VENT MODE SIMV; ARTERIAL DRAW? YES
[2016-09-16 05:05] LABS: ALBUMIN SERUM 1.9 g/dL (3.5-5.0); ALKALINE PHOSPHATASE 92 U/L (32-92); ALT (SGPT) 75 U/L (10-40); AST (SGOT) 41 U/L (10-42); BILIRUBIN,TOTAL 0.4 mg/dL (0.2-2.0); BLOOD UREA NITROGEN 27 mg/dL (9-23); CALCIUM SERUM 8.2 mg/dL (8.4-10.2); CARBON DIOXIDE 33 mmol/L (22-31); CHLORIDE 97 mmol/L (100-111); CREATININE SERUM 0.6 mg/dL (0.6-1.4); GLOM FILT RATE Estimated ABOVE60 mL/min (>60); GLUCOSE FASTING 133 mg/dL (70-110); POTASSIUM 4.7 mmol/L (3.5-5.1); SODIUM 141 mmol/L (135-145)
[2016-09-16 05:08] LABS: BASOPHIL% 0.2 % (0-2.5); HEMATOCRIT 29.4 % (38.0-50.0); HEMOGLOBIN 9.3 gm/dL (13.0-16.0); LYMPHOCYTE# 0.4 X10e3 (1.0-3.5); LYMPHOCYTE% 2.4 % (17.0-45.0); MEAN CELL VOLUME 85.3 FL (83-96); MEAN CORPUSCULAR HEMOGLOBIN 27.1 PG (28-34); MEAN CORPUSCULAR HGB CONC 31.8 g/dL (30-36); MEAN PLATELET VOLUME 7.7 FL (6.5-11.5); MONOCYTE# 0.4 X10e3 (0-1.0); NEUTROPHIL# 17.8 X10e3 (1.5-7.1); NEUTROPHIL% 95.4 % (40-75); PLATELET COUNT 640 X10e3 (140-420); RED BLOOD COUNT 3.45 X10e (3.90-5.60); RED CELL DISTRIBUTION WIDTH 15.2 % (11.0-15.5); WHITE BLOOD COUNT 18.6 X10e3 (4.0-10.5)
[2016-09-16 05:24] LABS: DIFF IND YES
[2016-09-16 05:55] LABS: ANISOCYTOSIS MOD; RBC NORMAL YES
[2016-09-16 05:57] LABS: PLATELET ESTIMATE INCREASED (NORMAL); POIKILOCYTOSIS SL
[2016-09-16 11:56] LABS: ARTERIAL BLD GAS O2 SATURATION 95.2 % (90.0-100.0); ARTERIAL BLOOD GAS CARBOXY HB 0.1 %sat (0.0-9.0); ARTERIAL BLOOD GAS HCO3 36.8 mmol/L; ARTERIAL BLOOD GAS MET HB 1.2 %sat (0.0-2.0); ARTERIAL BLOOD GAS PCO2 49.4 mmHg (35.0-45.0); ARTERIAL BLOOD GAS PO2 81.8 mmHg (80.0-100); ARTERIAL BLOOD GAS pH 7.481 (7.350-7.450)
[2016-09-16 11:57] LABS: ARTERIAL BLOOD GAS ART SITE RIGHT BRACHIAL; ARTERIAL BLOOD GAS DELIVERY VENT; ARTERIAL BLOOD GAS VENT MODE CPAP; ARTERIAL DRAW? YES
[2016-09-17 11:33] LABS: HEMATOCRIT 31.9 % (38.0-50.0); HEMOGLOBIN 10.2 gm/dL (13.0-16.0); MEAN CORPUSCULAR HEMOGLOBIN 27.1 PG (28-34); MEAN CORPUSCULAR HGB CONC 31.9 g/dL (30-36); MEAN PLATELET VOLUME 7.3 FL (6.5-11.5); RED BLOOD COUNT 3.76 X10e (3.90-5.60); RED CELL DISTRIBUTION WIDTH 15.8 % (11.0-15.5); WHITE BLOOD COUNT 22.5 X10e3 (4.0-10.5)
[2016-09-17 12:05] LABS: BLOOD UREA NITROGEN 25 mg/dL (9-23); BUN/CREATININE RATIO 41.66; CARBON DIOXIDE 31 mmol/L (22-31); CHLORIDE 95 mmol/L (100-111); CREATININE SERUM 0.6 mg/dL (0.6-1.4); GLOM FILT RATE Estimated ABOVE60 mL/min (>60); GLUCOSE FASTING 141 mg/dL (70-110); POTASSIUM 4.4 mmol/L (3.5-5.1); SODIUM 134 mmol/L (135-145)
[2016-09-18 04:41] LABS: BASOPHIL% 0.1 % (0-2.5); HEMATOCRIT 32.1 % (38.0-50.0); HEMOGLOBIN 10.3 gm/dL (13.0-16.0); LYMPHOCYTE# 0.2 X10e3 (1.0-3.5); LYMPHOCYTE% 1.2 % (17.0-45.0); MEAN CELL VOLUME 84.4 FL (83-96); MEAN CORPUSCULAR HEMOGLOBIN 27.1 PG (28-34); MEAN CORPUSCULAR HGB CONC 32.1 g/dL (30-36); MEAN PLATELET VOLUME 7.2 FL (6.5-11.5); MONOCYTE# 0.3 X10e3 (0-1.0); MONOCYTE% 1.7 % (3.0-12.0); NEUTROPHIL# 19.6 X10e3 (1.5-7.1); PLATELET COUNT 706 X10e3 (140-420); WHITE BLOOD COUNT 20.2 X10e3 (4.0-10.5)
[2016-09-18 04:42] LABS: DIFF IND NO
[2016-09-18 04:53] LABS: BLOOD UREA NITROGEN 21 mg/dL (9-23); CALCIUM SERUM 8.3 mg/dL (8.4-10.2); CARBON DIOXIDE 35 mmol/L (22-31); CHLORIDE 97 mmol/L (100-111); CREATININE SERUM 0.6 mg/dL (0.6-1.4); GLOM FILT RATE Estimated ABOVE60 mL/min (>60); GLUCOSE FASTING 103 mg/dL (70-110); POTASSIUM 4.4 mmol/L (3.5-5.1); SODIUM 137 mmol/L (135-145)
[2016-09-20 05:38] LABS: HEMATOCRIT 33.9 % (38.0-50.0); HEMOGLOBIN 10.8 gm/dL (13.0-16.0); MEAN CELL VOLUME 84.7 FL (83-96); MEAN CORPUSCULAR HGB CONC 31.9 g/dL (30-36); MEAN PLATELET VOLUME 7.7 FL (6.5-11.5); RED CELL DISTRIBUTION WIDTH 15.4 % (11.0-15.5); WHITE BLOOD COUNT 20.9 X10e3 (4.0-10.5)
[2016-09-20 05:44] LABS: ALBUMIN SERUM 2.4 g/dL (3.5-5.0); ALKALINE PHOSPHATASE 93 U/L (32-92); ALT (SGPT) 119 U/L (10-40); AST (SGOT) 28 U/L (10-42); BILIRUBIN,TOTAL 0.9 mg/dL (0.2-2.0); BLOOD UREA NITROGEN 17 mg/dL (9-23); CALCIUM SERUM 8.3 mg/dL (8.4-10.2); CARBON DIOXIDE 34 mmol/L (22-31); CHLORIDE 95 mmol/L (100-111); CREATININE SERUM 0.5 mg/dL (0.6-1.4); GLOM FILT RATE Estimated ABOVE60 mL/min (>60); GLUCOSE FASTING 80 mg/dL (70-110); PROTEIN TOTAL SERUM 6.3 g/dL (6.0-8.3); SODIUM 134 mmol/L (135-145)
[2016-09-21 06:32] LABS: BLOOD UREA NITROGEN 18 mg/dL (9-23); CALCIUM SERUM 8.5 mg/dL (8.4-10.2); CARBON DIOXIDE 28 mmol/L (22-31); CHLORIDE 92 mmol/L (100-111); CREATININE SERUM 0.6 mg/dL (0.6-1.4); GLOM FILT RATE Estimated ABOVE60 mL/min (>60); GLUCOSE FASTING 116 mg/dL (70-110); POTASSIUM 4.3 mmol/L (3.5-5.1); SODIUM 131 mmol/L (135-145)
[2016-09-22 06:58] LABS: HEMATOCRIT 32.7 % (38.0-50.0); HEMOGLOBIN 10.3 gm/dL (13.0-16.0); MEAN CELL VOLUME 85.1 FL (83-96); MEAN CORPUSCULAR HEMOGLOBIN 26.9 PG (28-34); MEAN CORPUSCULAR HGB CONC 31.6 g/dL (30-36); MEAN PLATELET VOLUME 7.8 FL (6.5-11.5); RED BLOOD COUNT 3.85 X10e (3.90-5.60); RED CELL DISTRIBUTION WIDTH 16.1 % (11.0-15.5); WHITE BLOOD COUNT 16.8 X10e3 (4.0-10.5)
[2016-09-22 07:32] LABS: BLOOD UREA NITROGEN 13 mg/dL (9-23); CALCIUM SERUM 8.6 mg/dL (8.4-10.2); CARBON DIOXIDE 31 mmol/L (22-31); CHLORIDE 92 mmol/L (100-111); CREATININE SERUM 0.5 mg/dL (0.6-1.4); GLOM FILT RATE Estimated ABOVE60 mL/min (>60); GLUCOSE FASTING 99 mg/dL (70-110); POTASSIUM 5.2 mmol/L (3.5-5.1); SODIUM 133 mmol/L (135-145)
[2016-09-23 07:41] LABS: HEMATOCRIT 30.8 % (38.0-50.0); HEMOGLOBIN 9.9 gm/dL (13.0-16.0); MEAN CELL VOLUME 84.9 FL (83-96); MEAN CORPUSCULAR HEMOGLOBIN 27.3 PG (28-34); MEAN CORPUSCULAR HGB CONC 32.2 g/dL (30-36); MEAN PLATELET VOLUME 7.3 FL (6.5-11.5); RED BLOOD COUNT 3.63 X10e (3.90-5.60); RED CELL DISTRIBUTION WIDTH 15.8 % (11.0-15.5); WHITE BLOOD COUNT 17.8 X10e3 (4.0-10.5)
[2016-09-23 07:48] LABS: INR 1.2; PROTHROMBIN TIME (PATIENT) 12.4 SECONDS (9.6-11.5)
[2016-09-23 08:40] LABS: ALBUMIN SERUM 2.2 g/dL (3.5-5.0); ALKALINE PHOSPHATASE 73 U/L (32-92); ALT (SGPT) 48 U/L (10-40); AST (SGOT) 25 U/L (10-42); BILIRUBIN,TOTAL 0.9 mg/dL (0.2-2.0); BLOOD UREA NITROGEN 13 mg/dL (9-23); CARBON DIOXIDE 28 mmol/L (22-31); CHLORIDE 96 mmol/L (100-111); CREATININE SERUM 0.5 mg/dL (0.6-1.4); GLOM FILT RATE Estimated ABOVE60 mL/min (>60); GLUCOSE FASTING 123 mg/dL (70-110); POTASSIUM 5.4 mmol/L (3.5-5.1); PROTEIN TOTAL SERUM 5.7 g/dL (6.0-8.3); SODIUM 128 mmol/L (135-145)
[2016-09-24 05:41] LABS: HEMATOCRIT 30.7 % (38.0-50.0); HEMOGLOBIN 9.8 gm/dL (13.0-16.0); MEAN CELL VOLUME 86.1 FL (83-96); MEAN CORPUSCULAR HEMOGLOBIN 27.6 PG (28-34); MEAN PLATELET VOLUME 7.9 FL (6.5-11.5); RED BLOOD COUNT 3.57 X10e (3.90-5.60); RED CELL DISTRIBUTION WIDTH 16.2 % (11.0-15.5); WHITE BLOOD COUNT 11.2 X10e3 (4.0-10.5)
[2016-09-24 05:49] LABS: INR 1.1; PROTHROMBIN TIME (PATIENT) 12.1 SECONDS (9.6-11.5)
[2016-09-24 06:25] LABS: BLOOD UREA NITROGEN 12 mg/dL (9-23); CALCIUM SERUM 8.2 mg/dL (8.4-10.2); CARBON DIOXIDE 34 mmol/L (22-31); CHLORIDE 94 mmol/L (100-111); CREATININE SERUM 0.4 mg/dL (0.6-1.4); GLOM FILT RATE Estimated ABOVE60 mL/min (>60); GLUCOSE FASTING 124 mg/dL (70-110); POTASSIUM 4.3 mmol/L (3.5-5.1); SODIUM 133 mmol/L (135-145)
[2016-09-24 13:11] LABS: ARTERIAL BLOOD GAS CARBOXY HB 0.4 %sat (0.0-9.0); ARTERIAL BLOOD GAS HCO3 35.5 mmol/L; ARTERIAL BLOOD GAS MET HB 1.1 %sat (0.0-2.0); ARTERIAL BLOOD GAS pH 7.456 (7.350-7.450)
[2016-09-24 13:12] LABS: ARTERIAL BLOOD GAS ALLEN TEST NORMAL; ARTERIAL BLOOD GAS ART SITE LEFT RADIAL; ARTERIAL BLOOD GAS DELIVERY OXYMIZER; ARTERIAL BLOOD GAS PCO2 50.4 mmHg (35.0-45.0); ARTERIAL BLOOD GAS PO2 64.5 mmHg (80.0-100); ARTERIAL DRAW? YES
[2016-09-25 07:37] LABS: HEMATOCRIT 31.5 % (38.0-50.0); HEMOGLOBIN 10.3 gm/dL (13.0-16.0); MEAN CELL VOLUME 85.4 FL (83-96); MEAN CORPUSCULAR HEMOGLOBIN 27.8 PG (28-34); MEAN CORPUSCULAR HGB CONC 32.5 g/dL (30-36); MEAN PLATELET VOLUME 7.7 FL (6.5-11.5); RED BLOOD COUNT 3.69 X10e (3.90-5.60); RED CELL DISTRIBUTION WIDTH 16.3 % (11.0-15.5); WHITE BLOOD COUNT 13.1 X10e3 (4.0-10.5)
[2016-09-25 08:02] LABS: BLOOD UREA NITROGEN 10 mg/dL (9-23); BUN/CREATININE RATIO 16.66; CALCIUM SERUM 8.2 mg/dL (8.4-10.2); CARBON DIOXIDE 32 mmol/L (22-31); CHLORIDE 94 mmol/L (100-111); CREATININE SERUM 0.6 mg/dL (0.6-1.4); GLOM FILT RATE Estimated ABOVE60 mL/min (>60); GLUCOSE FASTING 159 mg/dL (70-110); SODIUM 132 mmol/L (135-145)
[2016-09-27 08:39] LABS: BASOPHIL# 0.1 X10e3 (0-0.3); BASOPHIL% 0.8 % (0-2.5); EOSINOPHIL% 0.1 % (0.0-7.0); HEMATOCRIT 31.4 % (38.0-50.0); HEMOGLOBIN 10.2 gm/dL (13.0-16.0); LYMPHOCYTE# 0.4 X10e3 (1.0-3.5); LYMPHOCYTE% 3.6 % (17.0-45.0); MEAN CELL VOLUME 85.8 FL (83-96); MEAN CORPUSCULAR HEMOGLOBIN 27.8 PG (28-34); MEAN CORPUSCULAR HGB CONC 32.4 g/dL (30-36); MEAN PLATELET VOLUME 7.5 FL (6.5-11.5); MONOCYTE# 0.5 X10e3 (0-1.0); MONOCYTE% 3.7 % (3.0-12.0); NEUTROPHIL# 11.3 X10e3 (1.5-7.1); NEUTROPHIL% 91.8 % (40-75); PLATELET COUNT 633 X10e3 (140-420); RED BLOOD COUNT 3.66 X10e (3.90-5.60); RED CELL DISTRIBUTION WIDTH 16.3 % (11.0-15.5); WHITE BLOOD COUNT 12.3 X10e3 (4.0-10.5)
[2016-09-27 08:41] LABS: DIFF IND NO
[2016-09-27 09:10] LABS: BLOOD UREA NITROGEN 13 mg/dL (9-23); BUN/CREATININE RATIO 21.66; CALCIUM SERUM 8.5 mg/dL (8.4-10.2); CARBON DIOXIDE 32 mmol/L (22-31); CHLORIDE 92 mmol/L (100-111); CREATININE SERUM 0.6 mg/dL (0.6-1.4); GLOM FILT RATE Estimated ABOVE60 mL/min (>60); GLUCOSE FASTING 126 mg/dL (70-110); POTASSIUM 4.8 mmol/L (3.5-5.1); SODIUM 129 mmol/L (135-145)
[2016-09-28 06:32] LABS: HEMATOCRIT 30.6 % (38.0-50.0); HEMOGLOBIN 9.8 gm/dL (13.0-16.0); MEAN CELL VOLUME 85.7 FL (83-96); MEAN CORPUSCULAR HEMOGLOBIN 27.6 PG (28-34); MEAN CORPUSCULAR HGB CONC 32.2 g/dL (30-36); MEAN PLATELET VOLUME 7.5 FL (6.5-11.5); RED BLOOD COUNT 3.57 X10e (3.90-5.60); RED CELL DISTRIBUTION WIDTH 16.3 % (11.0-15.5); WHITE BLOOD COUNT 13.9 X10e3 (4.0-10.5)
[2016-09-28 07:25] LABS: ALBUMIN SERUM 2.7 g/dL (3.5-5.0); ALKALINE PHOSPHATASE 75 U/L (32-92); ALT (SGPT) 36 U/L (10-40); AST (SGOT) 23 U/L (10-42); BILIRUBIN,TOTAL 0.4 mg/dL (0.2-2.0); BLOOD UREA NITROGEN 14 mg/dL (9-23); BUN/CREATININE RATIO 23.33; CALCIUM SERUM 8.7 mg/dL (8.4-10.2); CARBON DIOXIDE 33 mmol/L (22-31); CHLORIDE 89 mmol/L (100-111); CREATININE SERUM 0.6 mg/dL (0.6-1.4); GLOM FILT RATE Estimated ABOVE60 mL/min (>60); GLUCOSE FASTING 151 mg/dL (70-110); POTASSIUM 4.8 mmol/L (3.5-5.1); PROTEIN TOTAL SERUM 6.3 g/dL (6.0-8.3); SODIUM 130 mmol/L (135-145)
[2016-09-29 08:24] LABS: BASOPHIL% 0.2 % (0-2.5); EOSINOPHIL% 0.2 % (0.0-7.0); HEMATOCRIT 31.3 % (38.0-50.0); HEMOGLOBIN 10.2 gm/dL (13.0-16.0); LYMPHOCYTE# 0.4 X10e3 (1.0-3.5); MEAN CELL VOLUME 86.1 FL (83-96); MEAN CORPUSCULAR HGB CONC 32.5 g/dL (30-36); MEAN PLATELET VOLUME 8.3 FL (6.5-11.5); MONOCYTE# 0.4 X10e3 (0-1.0); NEUTROPHIL# 12.3 X10e3 (1.5-7.1); NEUTROPHIL% 93.6 % (40-75); PLATELET COUNT 586 X10e3 (140-420); RED BLOOD COUNT 3.64 X10e (3.90-5.60); RED CELL DISTRIBUTION WIDTH 16.5 % (11.0-15.5); WHITE BLOOD COUNT 13.1 X10e3 (4.0-10.5)
[2016-09-29 08:31] LABS: DIFF IND NO
[2016-09-29 10:50] LABS: ALBUMIN SERUM 2.8 g/dL (3.5-5.0); ALKALINE PHOSPHATASE 76 U/L (32-92); ALT (SGPT) 33 U/L (10-40); AST (SGOT) 22 U/L (10-42); BILIRUBIN,TOTAL 0.6 mg/dL (0.2-2.0); BLOOD UREA NITROGEN 13 mg/dL (9-23); CALCIUM SERUM 8.9 mg/dL (8.4-10.2); CARBON DIOXIDE 32 mmol/L (22-31); CHLORIDE 91 mmol/L (100-111); CREATININE SERUM 0.5 mg/dL (0.6-1.4); GLOM FILT RATE Estimated ABOVE60 mL/min (>60); GLUCOSE FASTING 119 mg/dL (70-110); POTASSIUM 4.4 mmol/L (3.5-5.1); PROTEIN TOTAL SERUM 6.6 g/dL (6.0-8.3); SODIUM 129 mmol/L (135-145)
[2016-09-30 09:22] LABS: BASOPHIL% 0.3 % (0-2.5); EOSINOPHIL# 0.1 X10e3 (0-0.7); EOSINOPHIL% 0.6 % (0.0-7.0); HEMATOCRIT 31.8 % (38.0-50.0); HEMOGLOBIN 10.2 gm/dL (13.0-16.0); LYMPHOCYTE# 0.7 X10e3 (1.0-3.5); LYMPHOCYTE% 6.9 % (17.0-45.0); MEAN CELL VOLUME 86.7 FL (83-96); MEAN CORPUSCULAR HEMOGLOBIN 27.9 PG (28-34); MEAN CORPUSCULAR HGB CONC 32.1 g/dL (30-36); MEAN PLATELET VOLUME 7.8 FL (6.5-11.5); MONOCYTE# 0.5 X10e3 (0-1.0); MONOCYTE% 4.8 % (3.0-12.0); NEUTROPHIL# 8.8 X10e3 (1.5-7.1); NEUTROPHIL% 87.4 % (40-75); PLATELET COUNT 449 X10e3 (140-420); RED BLOOD COUNT 3.67 X10e (3.90-5.60); RED CELL DISTRIBUTION WIDTH 17.7 % (11.0-15.5); WHITE BLOOD COUNT 10.1 X10e3 (4.0-10.5)
[2016-09-30 09:25] LABS: DIFF IND NO
[2016-09-30 10:54] LABS: ARTERIAL BLD GAS O2 SATURATION 87.2 % (90.0-100.0); ARTERIAL BLOOD GAS ALLEN TEST Y; ARTERIAL BLOOD GAS ART SITE LEFT RADIAL; ARTERIAL BLOOD GAS CARBOXY HB 0.6 %sat (0.0-9.0); ARTERIAL BLOOD GAS DELIVERY OXY; ARTERIAL BLOOD GAS HCO3 35.3 mmol/L; ARTERIAL BLOOD GAS PCO2 52.4 mmHg (35.0-45.0); ARTERIAL BLOOD GAS PO2 53.5 mmHg (80.0-100); ARTERIAL BLOOD GAS pH 7.437 (7.350-7.450); ARTERIAL DRAW? YES
[2016-10-02 07:21] LABS: BLOOD UREA NITROGEN 14 mg/dL (9-23); CALCIUM SERUM 8.6 mg/dL (8.4-10.2); CARBON DIOXIDE 35 mmol/L (22-31); CHLORIDE 87 mmol/L (100-111); CREATININE SERUM 0.5 mg/dL (0.6-1.4); GLOM FILT RATE Estimated ABOVE60 mL/min (>60); GLUCOSE FASTING 105 mg/dL (70-110); POTASSIUM 4.6 mmol/L (3.5-5.1); SODIUM 130 mmol/L (135-145)
[2016-10-02 08:13] LABS: HEMATOCRIT 28.6 % (38.0-50.0); HEMOGLOBIN 9.3 gm/dL (13.0-16.0); MEAN CELL VOLUME 87.6 FL (83-96); MEAN CORPUSCULAR HEMOGLOBIN 28.3 PG (28-34); MEAN CORPUSCULAR HGB CONC 32.3 g/dL (30-36); MEAN PLATELET VOLUME 8.3 FL (6.5-11.5); RED BLOOD COUNT 3.27 X10e (3.90-5.60); RED CELL DISTRIBUTION WIDTH 16.9 % (11.0-15.5); WHITE BLOOD COUNT 8.7 X10e3 (4.0-10.5)
[2016-10-03 05:28] LABS: HEMATOCRIT 29.6 % (38.0-50.0); HEMOGLOBIN 9.6 gm/dL (13.0-16.0); MEAN CORPUSCULAR HEMOGLOBIN 28.4 PG (28-34); MEAN CORPUSCULAR HGB CONC 32.2 g/dL (30-36); MEAN PLATELET VOLUME 7.8 FL (6.5-11.5); RED BLOOD COUNT 3.37 X10e (3.90-5.60); RED CELL DISTRIBUTION WIDTH 17.3 % (11.0-15.5); WHITE BLOOD COUNT 7.8 X10e3 (4.0-10.5)
[2016-10-03 06:05] LABS: BLOOD UREA NITROGEN 14 mg/dL (9-23); CALCIUM SERUM 8.6 mg/dL (8.4-10.2); CARBON DIOXIDE 37 mmol/L (22-31); CHLORIDE 88 mmol/L (100-111); CREATININE SERUM 0.4 mg/dL (0.6-1.4); GLOM FILT RATE Estimated ABOVE60 mL/min (>60); GLUCOSE FASTING 112 mg/dL (70-110); POTASSIUM 4.6 mmol/L (3.5-5.1); SODIUM 129 mmol/L (135-145)
[2016-10-04 05:27] LABS: BASOPHIL% 0.3 % (0-2.5); EOSINOPHIL# 0.1 X10e3 (0-0.7); HEMATOCRIT 28.9 % (38.0-50.0); HEMOGLOBIN 9.3 gm/dL (13.0-16.0); LYMPHOCYTE# 0.8 X10e3 (1.0-3.5); MEAN CELL VOLUME 87.8 FL (83-96); MEAN CORPUSCULAR HEMOGLOBIN 28.3 PG (28-34); MEAN CORPUSCULAR HGB CONC 32.2 g/dL (30-36); MEAN PLATELET VOLUME 7.8 FL (6.5-11.5); MONOCYTE# 0.6 X10e3 (0-1.0); MONOCYTE% 8.4 % (3.0-12.0); NEUTROPHIL% 80.3 % (40-75); PLATELET COUNT 304 X10e3 (140-420); RED BLOOD COUNT 3.29 X10e (3.90-5.60); WHITE BLOOD COUNT 7.5 X10e3 (4.0-10.5)
[2016-10-04 05:32] LABS: DIFF IND NO
[2016-10-04 06:12] LABS: ALBUMIN SERUM 2.6 g/dL (3.5-5.0); ALKALINE PHOSPHATASE 72 U/L (32-92); ALT (SGPT) 23 U/L (10-40); AST (SGOT) 18 U/L (10-42); BILIRUBIN,TOTAL 0.4 mg/dL (0.2-2.0); BLOOD UREA NITROGEN 13 mg/dL (9-23); CALCIUM SERUM 8.3 mg/dL (8.4-10.2); CARBON DIOXIDE 35 mmol/L (22-31); CHLORIDE 87 mmol/L (100-111); CREATININE SERUM 0.5 mg/dL (0.6-1.4); GLOM FILT RATE Estimated ABOVE60 mL/min (>60); GLUCOSE FASTING 108 mg/dL (70-110); POTASSIUM 4.1 mmol/L (3.5-5.1); PROTEIN TOTAL SERUM 6.3 g/dL (6.0-8.3)
[2016-10-04 06:17] LABS: SODIUM 125 mmol/L (135-145)
[2016-10-04 18:52] LABS: BLOOD UREA NITROGEN 14 mg/dL (9-23); BUN/CREATININE RATIO 23.33; CALCIUM SERUM 8.4 mg/dL (8.4-10.2); CARBON DIOXIDE 35 mmol/L (22-31); CHLORIDE 90 mmol/L (100-111); CREATININE SERUM 0.6 mg/dL (0.6-1.4); GLOM FILT RATE Estimated ABOVE60 mL/min (>60); GLUCOSE FASTING 155 mg/dL (70-110); POTASSIUM 4.1 mmol/L (3.5-5.1); SODIUM 130 mmol/L (135-145)
[2016-10-05 06:21] LABS: HEMATOCRIT 29.5 % (38.0-50.0); HEMOGLOBIN 9.6 gm/dL (13.0-16.0); MEAN CELL VOLUME 86.3 FL (83-96); MEAN CORPUSCULAR HGB CONC 32.5 g/dL (30-36); MEAN PLATELET VOLUME 7.6 FL (6.5-11.5); RED BLOOD COUNT 3.42 X10e (3.90-5.60); RED CELL DISTRIBUTION WIDTH 17.9 % (11.0-15.5); WHITE BLOOD COUNT 7.4 X10e3 (4.0-10.5)
[2016-10-05 06:58] LABS: CREATININE,RANDOM URINE 93 mg/dL; SODIUM URINE RANDOM 114 mmol/L; TOTAL PROTEIN,RANDOM URINE 18 mg/dl (<10)
[2016-10-05 07:03] LABS: ALBUMIN SERUM 2.7 g/dL (3.5-5.0); ALKALINE PHOSPHATASE 74 U/L (32-92); ALT (SGPT) 25 U/L (10-40); AST (SGOT) 20 U/L (10-42); BILIRUBIN,TOTAL 0.4 mg/dL (0.2-2.0); BLOOD UREA NITROGEN 15 mg/dL (9-23); CALCIUM SERUM 9.1 mg/dL (8.4-10.2); CARBON DIOXIDE 37 mmol/L (22-31); CHLORIDE 88 mmol/L (100-111); CREATININE SERUM 0.5 mg/dL (0.6-1.4); GLOM FILT RATE Estimated ABOVE60 mL/min (>60); GLUCOSE FASTING 100 mg/dL (70-110); POTASSIUM 4.4 mmol/L (3.5-5.1); PROTEIN TOTAL SERUM 6.1 g/dL (6.0-8.3); SODIUM 134 mmol/L (135-145)
[2016-10-05 08:05] LABS: OSMOLALITY,SERUM 279 mOsmo/kg (280-300)
[2016-10-06 05:31] LABS: HEMATOCRIT 30.4 % (38.0-50.0); HEMOGLOBIN 9.8 gm/dL (13.0-16.0); MEAN CELL VOLUME 87.8 FL (83-96); MEAN CORPUSCULAR HEMOGLOBIN 28.2 PG (28-34); MEAN CORPUSCULAR HGB CONC 32.1 g/dL (30-36); MEAN PLATELET VOLUME 7.4 FL (6.5-11.5); RED BLOOD COUNT 3.47 X10e (3.90-5.60); RED CELL DISTRIBUTION WIDTH 18.2 % (11.0-15.5); WHITE BLOOD COUNT 7.2 X10e3 (4.0-10.5)
[2016-10-06 06:26] LABS: ALBUMIN SERUM 2.8 g/dL (3.5-5.0); ALKALINE PHOSPHATASE 71 U/L (32-92); ALT (SGPT) 27 U/L (10-40); AST (SGOT) 20 U/L (10-42); BILIRUBIN,TOTAL 0.4 mg/dL (0.2-2.0); BLOOD UREA NITROGEN 14 mg/dL (9-23); CALCIUM SERUM 9.1 mg/dL (8.4-10.2); CARBON DIOXIDE 38 mmol/L (22-31); CHLORIDE 89 mmol/L (100-111); CREATININE SERUM 0.5 mg/dL (0.6-1.4); GLOM FILT RATE Estimated ABOVE60 mL/min (>60); GLUCOSE FASTING 117 mg/dL (70-110); POTASSIUM 4.1 mmol/L (3.5-5.1); PROTEIN TOTAL SERUM 6.7 g/dL (6.0-8.3); SODIUM 132 mmol/L (135-145); URIC ACID 3.4 mg/dL (2.6-7.2)
[2016-10-07 08:57] LABS: BLOOD UREA NITROGEN 19 mg/dL (9-23); CALCIUM SERUM 9.2 mg/dL (8.4-10.2); CARBON DIOXIDE 36 mmol/L (22-31); CHLORIDE 88 mmol/L (100-111); CREATININE SERUM 0.5 mg/dL (0.6-1.4); GLOM FILT RATE Estimated ABOVE60 mL/min (>60); GLUCOSE FASTING 133 mg/dL (70-110); POTASSIUM 4.2 mmol/L (3.5-5.1); SODIUM 133 mmol/L (135-145)
[2016-10-13] MEDS ORDERED: DALIRESP500 MCG PEG (12:31)
[2016-10-13] MEDS ORDERED: PROTONIX PEG (12:31)
[2016-10-13] MEDS ORDERED: BAYER CHEWABLE81 MG PEG (12:32)
[2016-10-13] MEDS ORDERED: VYTORIN 10-101 EACH (12:34)
[2016-10-13] MEDS ORDERED: EFFEXOR75 MG PEG (12:35)
[2016-10-13] MEDS ORDERED: ABILIFY5 MG PEG (12:38)
[2016-10-13] MEDS ORDERED: BREO ELLIPTA 21 EACH INH (12:39)
[2016-10-13] MEDS ORDERED: LASIX20 MG PEG (12:40)
[2016-10-13] MEDS ORDERED: SINGULAIR PEG (12:40)
[2016-10-13] MEDS ORDERED: FLORASTORKIDS250 MG PEG (12:42)
[2016-10-13] MEDS ORDERED: METOPROLOL TART25 MG PEG (12:43)
[2016-10-13] MEDS ORDERED: JEVITY 1.5 CA1000 ML PO (12:45)
[2016-10-13] MEDS ORDERED: OXYCODONE HCL10 MG PEG (12:46)
[2016-10-13] MEDS ORDERED: MIRALAX17 GM PEG (12:47)
== END 2016-10-08 01:31 | DRG 207 ==
LOC: CED 06:29 → CEDOF 08:45 → CICCU2 10:24 → C5C 09-19 08:29
PROVIDERS: Emergency Medicine; Internal Medicine Cardiovascular Disease; Internal Medicine Gastroenterology; Internal Medicine Nephrology; Internal Medicine Pulmonary Disease; Nurse Practitioner
PROC: 5A1955Z Respiratory Ventilation, Greater than 96 Consecutive Hours (ICD-10-PCS; 2016-09-10)
PROC: 0BH17EZ Insertion of Endotracheal Airway into Trachea, Via Natural or Artificial Opening (ICD-10-PCS; 2016-09-10)
PROC: 02HV33Z Insertion of Infusion Device into Superior Vena Cava, Percutaneous Approach (ICD-10-PCS; 2016-09-10)
PROC: 4A02X4A Measurement of Cardiac Electrical Activity, Guidance, External Approach (ICD-10-PCS; 2016-09-10)
PROC: 0B968ZX Drainage of Right Lower Lobe Bronchus, Via Natural or Artificial Opening Endoscopic, Diagnostic (ICD-10-PCS; 2016-09-11)
PROC: 0BBB8ZX Excision of Left Lower Lobe Bronchus, Via Natural or Artificial Opening Endoscopic, Diagnostic (ICD-10-PCS; 2016-09-11)
PROC: 0BB88ZX Excision of Left Upper Lobe Bronchus, Via Natural or Artificial Opening Endoscopic, Diagnostic (ICD-10-PCS; 2016-09-11)
PROC: 0BB78ZX Excision of Left Main Bronchus, Via Natural or Artificial Opening Endoscopic, Diagnostic (ICD-10-PCS; 2016-09-11)
PROC: B24BYZZ Ultrasonography of Heart with Aorta using Other Contrast (ICD-10-PCS; 2016-09-11)
PROC: 0DJ08ZZ Inspection of Upper Intestinal Tract, Via Natural or Artificial Opening Endoscopic (ICD-10-PCS; 2016-09-22)
PROC: 0DH63UZ Insertion of Feeding Device into Stomach, Percutaneous Approach (ICD-10-PCS; principal; 2016-09-24 11:06)
DX: J96.22 Acute and chronic respiratory failure with hypercapnia (principal); J69.0 Pneumonitis due to inhalation of food and vomit; E43 Unspecified severe protein-calorie malnutrition; J15.6 Pneumonia due to other Gram-negative bacteria; T17.590A Other foreign object in bronchus causing asphyxiation, initial encounter; J47.1 Bronchiectasis with (acute) exacerbation; E22.2 Syndrome of inappropriate secretion of antidiuretic hormone; R13.12 Dysphagia, oropharyngeal phase; J44.1 Chronic obstructive pulmonary disease with (acute) exacerbation; J96.21 Acute and chronic respiratory failure with hypoxia; I10 Essential (primary) hypertension; E78.5 Hyperlipidemia, unspecified; Z79.82 Long term (current) use of aspirin; F32.9 Major depressive disorder, single episode, unspecified; F41.9 Anxiety disorder, unspecified; D72.829 Elevated white blood cell count, unspecified; Z00.6 Encounter for examination for normal comparison and control in clinical research program; Z68.25 Body mass index [BMI] 25.0-25.9, adult; E86.0 Dehydration
CPT/HCPCS: 31500; 36415; 36600; 51702; 71010; 71020; 74000; 74230; 80048; 80053; 80076; 81003; 82150; 82308; 82570; 82803; 82947; 83605; 83690; 83880; 83930; 83935; 84134; 84156; 84295; 84300; 84443; 84484; 84550; 85025; 85027; 85610; 85730; 87040; 87070; 87102; 87106; 87116; 87205; 87206; 87252; 87254; 88108; 88305; 88312; 89051; 92526; 92610; 92611; 93005; 93306; 94002; 94003; 94010; 94640; 94660; 94668; 94760; 94761; 94762; 97110; 97116; 97162; 97164; 97166; 97168; 97530; 97535; 99291; G0238; G8978-GP; G8979-GP; G8987-GO; G8988-GO; G8996-GN; G8997-GN; G8998-GN; J0171; J0330; J0456; J0692; J0696; J1170; J1650; J1815; J1940; J1956; J2185; J2250; J2270; J2920; J2930; J3010; J3490

== ENCOUNTER 2016-10-13 13:06 | Inpatient (IN) | payer OTHER ==
--- NOTE | ~2016-10-13 | CR63 ---
[facility] A Service [facility] RADIOLOGY TEXT RESULTS PATIENT: JANI ALLEN LOCATION: [facility] : [birth year] UNIT #: [id number] AGE: [address]: Gerber Francis MD SEX: M ORDER DR: [id number] [facility] [address] [place], [place] [address] [id number] I MR#: [id number] Acc #: [id number] NAME: JANI ALLEN : 1950 SEX: M STUDY DATE/TIME: 10/23/2016 9:07 UNIT: [facility] ROOM: [facility] STUDY DESCRIPTION: CR Chest 2 View Attending Physician: Henry Francis M.D. Ordering Physician: Henry Francis M.D. Primary Care Physician: Marie Vickers M.D. MEDICAL IMAGING REPORT This report is preliminary unless electronic signature is present EXAM PA and lateral chest, 10/23. COMPARISON STUDIES 10/18/2016 HISTORY Cough, shortness of breath for 11 days. TECHNIQUE PA and lateral views of the chest are obtained. FINDINGS Heart size in the patient is normal. Pulmonary vascular markings are normal. Some patchy infiltrates in the bases that have decreased compared with the last study. CONCLUSION Decrease in the patchy infiltrates in the lung bases compared with the last film. Dictated by... Loc Rodriguez M.D. THIS IS AN ELECTRONICALLY VERIFIED REPORT Loc Rodriguez M.D. at 10/25/2016 5:03 PM BETH/geno TD: 10/23/2016 13:01 JOB #: [id number] [facility] A Service [facility] RADIOLOGY TEXT RESULTS PATIENT: JANI ALLEN LOCATION: [facility] : [birth year] UNIT #: [id number] AGE: [address]: Gerber Francis MD SEX: M ORDER DR: MEDICAL IMAGING REPORT Page 1 of 1 COPY
--- NOTE | ~2016-10-13 | CR72 ---
[facility] A Service of [facility] & [facility] RADIOLOGY TEXT RESULTS PATIENT: JANI ALLEN LOCATION: [facility] [id number] : [birth year] UNIT #: [id number] AGE: [address]: Gerber Francis MD SEX: M ORDER DR: [id number] [facility] [address] [place], [place] [address] [id number] I MR#: [id number] Acc #: [id number] NAME: JANI ALLEN : 1950 SEX: M STUDY DATE/TIME: 10/15/2016 5:15 UNIT: [facility] ROOM: [facility] STUDY DESCRIPTION: CR Chest Single View Portable Attending Physician: Henry Francis M.D. Ordering Physician: Henry Francis M.D. Primary Care Physician: Marie Vickers M.D. MEDICAL IMAGING REPORT This report is preliminary unless electronic signature is present EXAM Portable chest 10/15/2016 INDICATION Continuing shortness of air. COMPARISON 10/14/2016. FINDINGS A portable view of the chest was obtained. Today's exam is compared with yesterday's study. There is some faint right lower lobe infiltrate. The heart size is normal. The rest of the lungs are clear. Dictated by... Ritchie Arevalo M.D. THIS IS AN ELECTRONICALLY VERIFIED REPORT Ritchie Arevalo M.D. at 10/15/2016 2:23 PM ERICKA/dallas TD: 10/15/2016 09:24 JOB #: [id number] MEDICAL IMAGING REPORT Page 1 of 1 COPY
--- NOTE | ~2016-10-13 | FU ---
[facility] Nutrition Therapy DATE: 10/22/16 Patient: JANI Harp HARISADRIENNE Physician: SVETLANA [address] Room/Bed: [address] [place] [address], Zip: [place] [address] Admit Date: 10/13/16 Date of : [birth year] Height: 6 0 Weight: 178 80.9 NUTRITION MONITORING/FOLLOW-UP: Reason: TF follow-up Anthropometrics: Ht: 6'0" Adm wt: 85 kg (187#) BMI: 25.4 Current wt: 80.9 kg (178#) Labs: Cl- 88, POC 113 Meds: Pepcid, Lopressor, Miralax, Novolog, Furosemide, NaCl, Metamucil I&O's: 3066/714, last BM 10/21 Skin: Scattered bruises (abd, BUE), redness (buttock) Edema: PEBBLES ankles (trace) Estimated Nutrition Needs: 7236-7018 kcal (25-30 kcal/kg) 102-127 g protein (1.2-1.5 g/kg) Assessment: Chart reviewed, events noted. Per RN, pt was given medication to help with diarrhea. Pt reported diarrhea subsiding and happening less frequently. Pt is receiving Jevity 1.5 at goal rate of 60 mL/hr + 30 mL prostat daily. Per pump history, pt received 82% of goal volume x 24 hrs. Enteral nutrition was turned off prior d/t fasting lipids test. Pt's wts are stable, ranging from 177#-180# over the past week. Pt reported no diet questions at this time. See recommendations below. Dx: Inadequate oral intake RT chronic aspiration AEB pt receiving enteral feeds for sole source nutrition. -ACTIVE Intervention: 1. Enternal nutrition Monitoring, Evaluation and Goals: 1. Enteral nutrition; provide >80% of estimated needs and goal volume x 24 hrs 2. GI; promote regular GI function 3. Weight; prevent unintentional weight loss, promote weight maintenance Recommendations: 1. Continue enteral nutrition with Jevity 1.5 @ goal rate of 60 mL/hr + 30 mL prostat daily. This will provide: 2060 kcal/ 107 g protein/ 1094 mL free H2O. [facility] Nutrition Therapy DATE: 10/22/16 Patient: JANI CARBALLOTER Physician: SVETLANA Address: [address] Room/Bed: [address] [place] [address], Zip: [place] [address] Admit Date: 10/13/16 Date of : [birth year] Height: 6 0 Weight: 178 80.9 2. Continue to monitor for signs and symptoms of tube feed intolerance. Continue medication to treat diarrhea. Status: Pt is at a mild nutritional risk. RD will f/u per protocol. Respectfully, Rekha Rene, Gaming Host Deangelo Wells MS, RD, LD [facility] cc: client file
--- NOTE | ~2016-10-13 | EKG ---
PATIENT: JANI ALLEN UNIT #: [id number] Ventricular Rate: 109 BPM Atrial Rate: 109 BPM P-R Interval: 128 ms QRS Duration: 130 ms Q-T Interval: 368 ms QTC Calculation(Bezet): 495 ms P [place]: 54 degrees Calculated R [place]: 17 degrees Calculated T [place]: 16 degrees Diagnosis Line: Sinus tachycardia with Premature supraventricular Diagnosis Line: complexes with occasional Premature ventricular Diagnosis Line: complexes and Fusion complexes Diagnosis Line: Right bundle branch block Diagnosis Line: Abnormal ECG Diagnosis Line: When compared with ECG of 13-OCT-2016 11:56, Diagnosis Line: Fusion complexes are now Present Diagnosis Line: Premature supraventricular complexes are now Diagnosis Line: Present Diagnosis Line: T wave inversion now evident in Anterior leads Diagnosis Line: Confirmed by MICHELET THURMAN, DONNELL ([id number]) on 10/19/2016 Diagnosis Line: 11:37:37 PM INTERPRETING MD: MICHELET THURMAN
--- NOTE | ~2016-10-13 | CR72 ---
[facility] A Service of [facility] & [facility] RADIOLOGY TEXT RESULTS PATIENT: JANI ALLEN LOCATION: [facility] [id number] : [birth year] UNIT #: [id number] AGE: [address]: Gerber Francis MD SEX: M ORDER DR: [id number] [facility] [address] [place], [place] [address] [id number] I MR#: [id number] Acc #: [id number] NAME: JANI ALLEN. : 1950 SEX: M STUDY DATE/TIME: 10/24/2016 043 UNIT: [facility] ROOM: [facility] STUDY DESCRIPTION: CR Chest Single View Portable Attending Physician: Henry Francis M.D. Ordering Physician: Henry Francis M.D. Primary Care Physician: Marie Vickers M.D. MEDICAL IMAGING REPORT This report is preliminary unless electronic signature is present EXAM Portable chest, 10/24 at 0438. INDICATION Cough, shortness of air, hypotension. FINDINGS AP portable chest compared with 10/23/2016. Heart size stable. There is emphysema. There is continued infiltrate at the right base worrisome for pneumonia. There is no pneumothorax. Dictated by... Javier Hwang Jr., M.D. THIS IS AN ELECTRONICALLY VERIFIED REPORT Javier Hwang Jr., M.D. at 10/24/2016 11:59 PM MATHEW/geno TD: 10/24/2016 08:13 JOB #: [id number] MEDICAL IMAGING REPORT Page 1 of 1 COPY
--- NOTE | ~2016-10-13 | CR72 ---
[facility] A Service of [facility] & [facility] RADIOLOGY TEXT RESULTS PATIENT: JANI ALLEN LOCATION: [facility] [id number] : [birth year] UNIT #: [id number] AGE: [address]: Gerber Francis MD SEX: M ORDER DR: [id number] [facility] [address] [place], [place] [address] [id number] P MR#: [id number] Acc #: [id number] NAME: JANI ALLEN. : 1950 SEX: M STUDY DATE/TIME: 10/13/2016 12:11 UNIT: [facility] ROOM: STUDY DESCRIPTION: CR Chest Single View Portable Attending Physician: Dusty Bond M.D. Ordering Physician: Dusty Bond M.D. Primary Care Physician: Marie Vickers M.D. MEDICAL IMAGING REPORT This report is preliminary unless electronic signature is present EXAM Portable chest. HISTORY 66-year-old male with short of breath today. COMPARISON 10/07/2016 FINDINGS There are worsening interstitial infiltrates. There is increased bronchial wall thickening. Heart size stable. IMPRESSION Increased interstitial infiltrates and bronchial wall thickening. Dictated by... Alonso Farooq M.D. THIS IS AN ELECTRONICALLY VERIFIED REPORT Alonso Farooq M.D. at 10/13/2016 4:29 PM Eleuterio TD: 10/13/2016 13:03 JOB #: [id number] MEDICAL IMAGING REPORT Page 1 of 1 COPY
--- NOTE | ~2016-10-13 | CR72 ---
[facility] A Service [facility] RADIOLOGY TEXT RESULTS PATIENT: JANI ALLEN LOCATION: [facility] : [birth year] UNIT #: [id number] AGE: [address]: Gerber Francis MD SEX: M ORDER DR: [id number] [facility] [address] [place], [place] [address] [id number] I MR#: [id number] Acc #: [id number] NAME: JANI ALLEN : 1950 SEX: M STUDY DATE/TIME: 10/25/2016 6:33 UNIT: [facility] ROOM: [facility] STUDY DESCRIPTION: CR Chest Single View Portable Attending Physician: Henry Francis M.D. Ordering Physician: Henry Francis M.D. Primary Care Physician: Marie Vickers M.D. MEDICAL IMAGING REPORT This report is preliminary unless electronic signature is present EXAM AP portable chest. DATE 10/25/2016 at 0633 HISTORY Cough, shortness of breath, hypotension. Symptoms began 10/13/2016. Additional known history of bronchiectasis, COPD, hypertension, previous smoking history. COMPARISON AP portable chest 10/24/2016. FINDINGS Lungs are hyperinflated with emphysematous change. Interstitial and alveolar disease changes are present within the bilateral lower lobes, may be slightly worse on the left compared to the previous study. Right basilar airspace disease is unchanged. Suspected cylindrical bronchiectatic changes in the bilateral lower lobes, similar to the prior study and corresponding to previous findings from CT chest from 10/10/2015. No pneumothorax is visible. Old left rib fractures. IMPRESSION 1. Bibasilar interstitial and alveolar disease changes, stable on the right, new or increasing on the left since 10/24/2016. Correlate clinically for worsening pneumonia. 2. Cylindrical bronchiectasis in the bilateral lower lobes corresponding to previous September 2015 CT chest. 3. Emphysema. [facility] A Service [facility] RADIOLOGY TEXT RESULTS PATIENT: JANI ALLEN LOCATION: [facility] : [birth year] UNIT #: [id number] AGE: [address]: Gerber Francis MD SEX: M ORDER DR: Dictated by... Fiona Angel M.D. THIS IS AN ELECTRONICALLY VERIFIED REPORT Fiona Angel M.D. at 10/26/2016 8:33 AM FLO/geno TD: 10/25/2016 10:21 JOB #: [id number] MEDICAL IMAGING REPORT Page 1 of 1 COPY
--- NOTE | ~2016-10-13 | CR72 ---
[facility] A Service of [facility] & [facility] RADIOLOGY TEXT RESULTS PATIENT: JANI ALLEN LOCATION: [facility] 56- : [birth year] UNIT #: [id number] AGE: [address]: Gerber Francis MD SEX: M ORDER DR: [id number] [facility] [address] [place], [place] [address] [id number] I MR#: [id number] Acc #: [id number] NAME: JANI ALLEN : 1950 SEX: M STUDY DATE/TIME: 10/18/2016 4:42 UNIT: [facility] ROOM: [facility] STUDY DESCRIPTION: CR Chest Single View Portable Attending Physician: Gerber Francis Ordering Physician: Gerber Francis Primary Care Physician: Marie Vickers M.D. MEDICAL IMAGING REPORT This report is preliminary unless electronic signature is present EXAM Portable chest INDICATIONS Shortness of air and cough for the past 5 days. PROCEDURE Frontal view chest COMPARISON 10/17/2016 FINDINGS Heart size stable and persistent opacity right lung base. No new dense consolidation. IMPRESSION Stable Dictated by... Mukul Mei M.D. THIS IS AN ELECTRONICALLY VERIFIED REPORT Mukul Mei M.D. at 10/18/2016 9:56 PM GELY/paco TD: 10/18/2016 08:48 JOB #: [id number] MEDICAL IMAGING REPORT Page 1 of 1 COPY
--- NOTE | ~2016-10-13 | CR72 ---
[facility] A Service of [facility] & [facility] RADIOLOGY TEXT RESULTS PATIENT: JANI ALLEN LOCATION: [facility] [id number] : [birth year] UNIT #: [id number] AGE: [address]: Gerber Francis MD SEX: M ORDER DR: [id number] [place] [address] [place], [place] [address] [id number] I MR#: [id number] Acc #: [id number] NAME: JANI ALLEN : 1950 SEX: M STUDY DATE/TIME: 10/26/2016 5:31 UNIT: [facility] ROOM: [facility] STUDY DESCRIPTION: CR Chest Single View Portable Attending Physician: Henry Francis M.D. Ordering Physician: Henry Francis M.D. Primary Care Physician: Marie Vickers M.D. MEDICAL IMAGING REPORT This report is preliminary unless electronic signature is present EXAM Portable chest INDICATION Follow up pneumonia. FINDINGS A portable view of the chest was obtained and compared with 10/25/2016. Patchy, faint, right lower lobe greater than left lower lobe infiltrates are unchanged. The heart size is normal. Dictated by... Ritchie Arevalo M.D. THIS IS AN ELECTRONICALLY VERIFIED REPORT Ritchie Arevalo M.D. at 10/26/2016 11:44 AM ERICKA/dallas TD: 10/26/2016 07:52 JOB #: [id number] MEDICAL IMAGING REPORT Page 1 of 1 COPY
--- NOTE | ~2016-10-13 | EKG ---
PATIENT: JANI ALLEN UNIT #: [id number] Ventricular Rate: 82 BPM Atrial Rate: 82 BPM P-R Interval: 120 ms QRS Duration: 134 ms Q-T Interval: 384 ms QTC Calculation(Bezet): 448 ms P [place]: 3 degrees Calculated R [place]: -20 degrees Calculated T [place]: 24 degrees Diagnosis Line: Normal sinus rhythm Diagnosis Line: Right bundle branch block Diagnosis Line: Abnormal ECG Diagnosis Line: When compared with ECG of 19-OCT-2016 11:23, Diagnosis Line: Fusion complexes are no longer Present Diagnosis Line: Premature ventricular complexes are no longer Diagnosis Line: Present Diagnosis Line: Premature supraventricular complexes are no longer Diagnosis Line: Present Diagnosis Line: Confirmed by DONNELL TAFOYA MD ([id number]) on 10/22/2016 Diagnosis Line: 7:03:46 PM INTERPRETING MD: MICHELET THURMAN
--- NOTE | ~2016-10-13 | EKG ---
PATIENT: JANI ALLEN UNIT #: [id number] Ventricular Rate: 94 BPM Atrial Rate: 94 BPM P-R Interval: 122 ms QRS Duration: 124 ms Q-T Interval: 350 ms QTC Calculation(Bezet): 437 ms P [place]: 30 degrees Calculated R [place]: 61 degrees Calculated T [place]: 30 degrees Diagnosis Line: Normal sinus rhythm Diagnosis Line: Right bundle branch block with repolarization Diagnosis Line: abnormality Diagnosis Line: Abnormal ECG Baseline wander Diagnosis Line: When compared with ECG of 10-SEP-2016 07:04, Diagnosis Line: No significant change was found Diagnosis Line: Confirmed by SLY MEZA MD ([id number]) on 10/13/2016 Diagnosis Line: 9:23:41 PM INTERPRETING MD: DERRICK THURMAN
--- NOTE | ~2016-10-13 | CR72 ---
[facility] A Service of [facility] & [facility] RADIOLOGY TEXT RESULTS PATIENT: JANI ALLEN LOCATION: [facility] 565- : [birth year] UNIT #: [id number] AGE: [address]: Gerber Francis MD SEX: M ORDER DR: [id number] [facility] [address] [place], [place] [address] [id number] I MR#: [id number] Acc #: [id number] NAME: JANI ALLEN. : 1950 SEX: M STUDY DATE/TIME: 10/14/2016 5:24 UNIT: [facility] ROOM: [facility] STUDY DESCRIPTION: CR Chest Single View Portable Attending Physician: Gerber Francis Ordering Physician: Gerber Francis Primary Care Physician: Marie Vickers M.D. MEDICAL IMAGING REPORT This report is preliminary unless electronic signature is present EXAM Portable chest. HISTORY Respiratory failure. FINDINGS AP radiograph of the chest is presented. Comparison 10/13/2016 12:11 hours. No acute bony abnormality. Heart normal in size. The lungs are well inflated. Ill-defined patchy and linear densities in the bilateral lower lung zones. There is no compelling evidence of pulmonary edema. These parenchymal densities probably reflect some form of pneumonia with interstitial and airspace components. Bronchial wall prominence described on prior examination persists, particularly in the lower lung zones, likely reflecting bronchitis or reactive airway disease. No news areas of involvement. No dense airspace disease. No pleural effusion or pneumothorax and no suspicious nodule. Dictated by... Loc Carlos M.D. THIS IS AN ELECTRONICALLY VERIFIED REPORT Loc Carlos M.D. at 10/15/2016 5:05 PM SATISH/paco TD: 10/14/2016 10:18 JOB #: [id number] MEDICAL IMAGING REPORT Page 1 of 1 COPY
--- NOTE | ~2016-10-13 | CO ---
Unit #: [id number] #: [id number] Patient: JANI ALLEN [id number] [facility] [place] [facility]. [place], [place] [address] [id number] MR#: [id number] NAME: JANI ALLEN. ROOM: 56 Age: 66 Sex: M Admission Date: 10/13/2016 : 1950 Attending Physician: Henry Francis M.D. Primary Care Physician: Marie Vickers M.D. Consultation Date: 10/21/2016 CONSULTATION REPORT REASON FOR CONSULTATION Tachycardia. 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 Review of records shows the patient had a cardiac catheterization on October 03, [address] David Segura at [facility]. At that time left main was normal, D-1 showed 50% to 75% stenosis, left circumflex dominant and was okay. RCA shows 50% stenosis at the RV branch. At that time his EF was greater than 50%. Additional past medical history includes hypertension, hyperlipidemia, right bundle branch block, coronary artery disease and an abnormal stress test in 2003. The patient quit smoking and drinking 4-5 years ago. The patient reports that he smoked 2 packs of cigarettes a day for greater than 50 years and used to drink alcohol daily. Initially the patient came into the emergency department with shortness of air that had been going on for 3 days prior to admission. He presented to the emergency department where he was intubated by the emergency department doctor. The patient was extubated on September 16, 2016. Since that time, pulmonary has been treating him for acute COPD and acute bronchiectasis exacerbation. Cardiology was consulted for tachycardia. The patient reports when he ambulates (which is not very far), he feels his heart rate elevate, and he becomes more short of breath. He also reports that he does have a little bit of dizziness. He has never lost consciousness or felt like he was going to pass out. He denies any chest pain. He denies cough, fever or chest pain. He does endorse mild nausea, shortness of breath, chills and palpitations. EKG was reviewed and showed sinus tachycardia with a right bundle branch block and PACs. Telemetry strips were reviewed and showed supraventricular tachycardia versus atrial tachycardia. PAST MEDICAL HISTORY 1. Cardiac cath on October 03, [address] Segura at [facility] showed left main normal, D-1 50% to 75% stenosis, left circumflex dominant and within normal limits, RCA 50% stenosis at the RV branch, and his EF was greater than 50%. 2. Hypertension. 3. Hyperlipidemia. 4. Right bundle branch block. 5. Coronary artery disease. Unit #: [id number] #: [id number] Patient: JANI ALLEN 6. Abnormal stress test in 2003, which prompted the cardiac catheterization. 7. COPD. 8. Bronchiectasis. 9. Chronic aspiration requiring a PEG tube. 10. Aspiration pneumonia. 11. 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 SURGICAL HISTORY 1. Bronchoscopy x2. 2. Cardiac cath. 3. PEG tube placement. ALLERGIES Azithromycin. HOME MEDICATIONS 1. Toprol XL 50 mg p.o. daily. 2. Calin-Dur 300 mg p.o. daily. 3. ProAir HFA p.r.n. 4. Ambien 10 mg p.o. at night. 5. Xanax 0.5 mg p.o. t.i.d. 6. Singulair 10 mg p.o. daily. 7. Zetia 10 mg p.o. daily. 8. Abilify 5 mg p.o. daily. 9. Albuterol and ipratropium Mini-Neb q.i.d. 10. Effexor 150 mg p.o. daily. 11. Breo Ellipta 100/25 one puff daily. 12. Daliresp 500 mg p.o. daily. 13. Aspirin 81 mg p.o. daily. 14. Hydrocodone 10 mg p.o. b.i.d. FAMILY HISTORY Noncontributory. SOCIAL HISTORY Patient lives with his . He uses a walker or a wheelchair. He endorses that he quit smoking and drinking alcohol approximately 4-5 years ago. He does admit that he smoked for greater than 50 years at approximately 2 packs per day. He also endorses that he used to drink alcohol daily. He denies any illicit drug abuse. REVIEW OF SYSTEMS A 10-point review of systems has been done and is considered, otherwise, negative unless indicated in the HPI. PHYSICAL EXAMINATION GENERAL: The patient is awake, alert, in no acute distress. VITAL SIGNS: Temperature 97.4, heart rate 84, respirations 16, blood pressure 158/73, oxygenating 94% on oxygen. HEENT: Head is atraumatic, normocephalic. Pupils are equal, round and reactive. Extraocular movements are intact. No drainage from ears or nares. NECK: Supple. Trachea is midline. CHEST: The lungs are diminished bilaterally with faint wheezes. No rhonchi. CARDIOVASCULAR: S1, S2. Regular rate and rhythm. No murmurs, rubs or Unit #: [id number] #: [id number] Patient: JANI ALLEN appreciated. ABDOMEN: Abdomen is soft, nontender, nondistended. Bowel sounds are positive in all 4 quadrants. PEG tube is in place. EXTREMITIES: No clubbing, edema or cyanosis. NEUROLOGIC: He is alert and oriented x3. He is pleasant and conversant. Cranial nerves II-XII appear to be intact. No focal deficits. DIAGNOSTIC STUDIES LABORATORY RESULTS: White blood cells 8.2, hemoglobin 9.6, hematocrit 28.8, platelets 464. Sodium 135, potassium 3.1, chloride 87, CO2 40, BUN 18, creatinine 0.5, glucose 142. CARDIOVASCULAR: EKG shows sinus tachycardia with right bundle branch block and PACs. Telemetry monitoring shows SVT versus atrial tachycardia. ASSESSMENT 1. SVT versus atrial tachycardia. 2. Acute on chronic hypoxic respiratory failure, requiring mechanical ventilation, now extubated. 3. Coronary artery disease with D-1 at 50% to 75% stenosis and RCA branch 50% stenosis. 4. Right bundle branch block. 5. Hypertension. 6. Hyperlipidemia. 7. Acute bronchiectasis exacerbation. 8. Chronic aspiration requiring PEG tube. 9. Reformed tobaccoism. 10. Reformed alcoholism. PLAN Will check a BMP, magnesium, CBC, TSH and lipid panel in the morning. Will trend cardiac enzymes x2. Will check an EKG now. Will order a two-D echocardiogram to rule out CHF. Will check orthostatic vital signs. The patient will be started on amiodarone 200 mg p.o. b.i.d. for 7 days, then down to 200 mg p.o. daily. Will decrease his Metoprolol to 25 mg p.o. b.i.d. Ummat has seen and evaluated the patient. Dictated by... Sharon Cabello A.P.R.N. for Ismael Dunbar M.D. AM/asim TD: 10/21/2016 13:37 JOB #: [id number] Unit #: [id number] #: [id number] Patient: JANI ALLEN CONSULTATION REPORT Page 1 of 1 X Sharon Cabello FUNDRAISING SPECIALIST X CONSULTATION REPORT
--- NOTE | ~2016-10-13 | FU ---
[facility] Nutrition Therapy DATE: 10/18/16 Patient: JANI ALLEN Physician: SVETLANA Address: [address] [address] [address] Room/Bed: [address] [place] [address], Zip: [place] [address] Admit Date: 10/13/16 Date of : [birth year] Height: 6 0 Weight: 180 81.9 NUTRITION MONITORING/FOLLOW-UP: Reason: TF follow-up Anthropometrics: Ht: 6'0" Adm wt: 85 kg BMI: 25.4 Current wt: 81.8 kg Labs: K+ 3.3, Cl- 89, Gluc 140, POC 162 Meds: Solu-medrol, Pepcid, Lopressor, Miralax, Novolog, Furosemide, NaCl, Metamucil I&O's: 3980/1476, last BM 10/17 Skin: no changes Edema: PEBBLES ankles (trace) Estimated Nutrition Needs: 2344-1147 kcal (25-30 kcal/kg) 102-127 g protein (1.2-1.5 g/kg) Assessment: Chart reviewed, events noted. Pt is currently receiving enteral nutrition of Jevity 1.5 at goal rate of 60 mL/hr + 30 mL prostat daily + 200 mL free H2O flushes q 6 hrs. Pt received 94% goal volume x 24 hrs. Pt c/o diarrhea. Per RN, medication is being ordered to manage diarrhea. See recommendations below. Dx: Inadequate oral intake RT chronic aspiration AEB pt receiving enteral feeds for sole source nutrition. -ACTIVE Intervention: 1. Enteral nutrition Monitoring, Evaluation and Goals: 1. Enteral nutrition; provide >80% estimated needs and goal volume x 24 hrs 2. GI; promote regular GI function 3. Labs; WNL 4. Weight; prevent unintentional weight loss, promote weight maintenance Recommendations: 1. Continue enteral nutrition of Jevity 1.5 @ goal rate of 60 mL/hr + 30 mL prostat daily + 200 mL free H2O flushes q 6 hrs. This provides: 2060 kcal/ 107 g protein/ 1094 free H2O. 2. Continue to monitor for signs and symptoms of tube feed intolerance. Continue [facility] Nutrition Therapy DATE: 10/18/16 Patient: JANI ALLEN Physician: SVETLANA Address: [address] Room/Bed: [address] [place] [address], Zip: [place] [address] Admit Date: 10/13/16 Date of : [birth year] Height: 6 0 Weight: 180 81.9 medications to treat diarrhea. Status: Pt is at a mild nutritional risk. RD will f/u per protocol. Respectfully, Rekha Rene, Watchstander Deangelo Wells MS, RD, LD Food and Nutritional Services [facility] cc: client file
--- NOTE | ~2016-10-13 | FU ---
[facility] Nutrition Therapy DATE: 10/26/16 Patient: JANI ALLEN Physician: SVETLANA [address] [facility] Room/Bed: [address] [place] [address], Zip: [place] [address] Admit Date: 10/13/16 Date of : [birth year] Height: 6 0 Weight: 176 80 NUTRITION MONITORING/FOLLOW-UP: Reason: Request for bolus enteral nutrition recommendations prior to discharge Anthropometrics: Ht: 72", admission wt: 85 kg, BMI: 25.4 (overweight) Current diet regimen: NPO; continuous enteral feeds with Jevity 1.5 @ 60 ml/hr + 30 ml Prostat daily Estimated Nutrition Needs: 5903-1885 kcals per day (25-30 kcals/kg) 102-127 g protein per day (1.2-1.5 g/kg) Fluids consistent with kcal needs or per MD Recommendations: 1. RD unable to determine at this time whether the patient would tolerate bolus feeds, as he has not been trialed on bolus feeds as of yet throughout his hospital course. He may have difficulty tolerating the volume of feedings that he requires as he has increased nutrient needs, and has also had issues with diarrhea. 2. Recommend trial of bolus enteral feeds prior to discharge with Jevity 1.5 7 cans daily, to provide 1680 ml (240 ml per can), 2520 kcals, 107 g protein and 1277 ml water. Suggest 2 cans at breakfast/lunch/dinner and 1 can 2 hours before bedtime. Flush with 100 ml free water before and after each bolus. Please give each bolus over 30-60 minutes. 3. Patient has had diarrhea throughout this hospital course which seemed to be improved with the addition of Metamucil fiber supplement. Note enteral feeds as desribed in #1 would provide 40 g fiber per day. If additional fiber is desired to help with diarrhea suggest 10 g of soluble fiber such as Benefiber given in divided doses over 24 hours. 4. If the patient is unable to tolerate bolus feeds suggest being discharge with a pump so that continuous feeds with Jevity 1.5 can be ran at home; goal rate with continuous feeds would be 70 ml/hr over 24 hours. Suggest monitoring weight trends and for any signs of intolerance such as abdominal distension, vomiting and lack of passage of stool or gas/bowel sounds. Please call RD office with any further questions Office #[phone] Respectfully, [facility] Nutrition Therapy DATE: 10/26/16 Patient: JANI ALLEN Physician: SVETLANA Address: [address] [place] [address] Room/Bed: [address] [place] [address], Zip: [place] [address] Admit Date: 10/13/16 Date of : [birth year] Height: 6 0 Weight: [address], LD Food and Nutritional Services [facility] cc: client file
--- NOTE | ~2016-10-13 | CR72 ---
[facility] A Service of [facility] RADIOLOGY TEXT RESULTS PATIENT: JANI ALLEN LOCATION: [facility] [id number] : [birth year] UNIT #: [id number] AGE: [address]: Gerber Francis MD SEX: M ORDER DR: [id number] [facility] [address] [place], [place] [address] [id number] MR#: [id number] Acc #: [id number] NAME: JANI ALLEN : 1950 SEX: M STUDY DATE/TIME: 10/17/2016 4:55 UNIT: [facility] ROOM: [facility] STUDY DESCRIPTION: CR Chest Single View Portable Attending Physician: Henry Francis M.D. Ordering Physician: Henry Francis M.D. Primary Care Physician: Marie Vickers M.D. MEDICAL IMAGING REPORT This report is preliminary unless electronic signature is present EXAM Portable chest, 10/17/2016 HISTORY Shortness of air for 4 days. COMPARISON Chest, 10/15/2016 FINDINGS Frontal chest demonstrates persistent right basilar infiltrate. No pneumothorax. Left lung clear. Heart size and mediastinum are stable. IMPRESSION No change in right basilar infiltrate. Dictated by... Len Truong M.D. THIS IS AN ELECTRONICALLY VERIFIED REPORT Len Truong M.D. at 10/18/2016 4:40 PM Gopal TD: 10/17/2016 17:14 JOB #: [id number] MEDICAL IMAGING REPORT Page 1 of 1 COPY
--- NOTE | ~2016-10-13 | DS ---
Unit #: [id number] #: [id number] Patient: JANI ALLEN [id number] [facility]. [place], [place] [address] [id number] MR#: [id number] NAME: JANI ALLEN. ROOM: 56 Age: 66 Sex: M Admission Date: 10/13/2016 : 1950 Discharge Date: 10/26/2016 Attending Physician: Henry Francis M.D. Primary Care Physician: Marie Vickers M.D. DISCHARGE SUMMARY ADMISSION DIAGNOSES 1. Atrial tachycardia. 2. Repeat acute on chronic hypoxic respiratory failure. 3. Hospital acquired pneumonia. 4. Severe COPD. 5. Acute bronchiectasis exacerbation. 6. Chronic aspiration requiring PEG tube. This is a pleasant 66-year-old gentleman with a history of recent discharge. The patient had a shortness of breath. The patient's past medical history is hypertension, hyperlipidemia, right bundle branch block, coronary artery disease, COPD. He quit smoking and drinking 4.5 years ago. He is a greater than 50 pack year history of regular alcohol. He presented to the emergency department in September. He was discharged on 10/07/2016 following a ventilation stay and cardiology had been consulted for tachycardia. The patient was seen by cardiology and they addressed his metoprolol. He was placed on antibiotics. Initially patient was unable to produce sputum; however, the sputum from 10/13/2016 showed Corynebacterium species. Following that on 11/08/2016 Achromobacter xylosoxidans was grown out. The patient has completed 14 days of Zosyn, vancomycin, and tobramycin. Tobramycin and Zosyn were discontinued and patient should be sent out on three more days of Bactrim. Patient has completed a course of vancomycin today. He will followup with us in a few weeks. We were unable to secure a rehab facility. MEDICATIONS 1. Albuterol sulfate solution q.4 hours as needed. 2. Ipratropium albuterol sulfate solution 4 times a day. 3. Prednisone 20 mg p.o. b.i.d. x2 days, 10 mg p.o. b.i.d. x2 days, 5 mg p.o. b.i.d. x2 days. 4. Cordarone 200 mg p.o. daily. 5. Effexor 75 mg daily. 6. Vytorin 10/10 one tablet daily. 7. Abilify 5 mg daily. 8. Zolpidem 5 mg at bedtime and 0.5 mg at bedtime p.r.n. nausea for insomnia. 9. Xanax 0.5 mg p.o. per PEG t.i.d. p.r.n. insomnia. 10. Jevity 1.5 mL p.o. daily, can 3 times a day. 11. Metoprolol 100 mg p.o. b.i.d. 12. Polyethylene glycol 17 g packs daily p.r.n. constipation. 13. Metamucil 1 packet 3 times a day. 14. Fluticasone vilanterol, AKA Breo Ellipta 200/25, one puff daily. 15. Furosemide 20 mEq daily. 16. NovoLog FlexPen a.c. and h.s. Unit #: [id number] #: [id number] Patient: JANI ALLEN 17. Montelukast 10 mg daily. 18. Saccharomyces boulardii packets, one tablet twice a day. 19. Aspirin 81 mg daily. 20. Oxycodone 10 mg q.4 hours. 21. Roflumilast 500 mcg daily. 22. Bactrim DS 1 tablets twice a day for three days. FOLLOWUP Followup with Dr. Dunbar's office within three to four weeks. Followup with [facility] within one week of being discharged. Dictated by... Idalia Rosa/kleber TD: 10/27/2016 05:40 JOB #: [id number] DISCHARGE SUMMARY Page 1 of 1 X Gerber Francis MD X DISCHARGE SUMMARY
--- NOTE | ~2016-10-13 | A ---
[facility] Nutrition Therapy DATE: 10/14/16 Patient: JANI ALLEN Physician: SVETLANA [address]: [address] Room/Bed: [address], Zip: [place] [address] Admit Date: 10/13/16 Date of : [birth year] Height: 6 0 Weight: 187 85 NUTRITIONAL ASSESSMENT: REASON: Enteral nutrition assessment 66 yo male admitted for respiratory failure PMH: COPD stage III, SHERITA, chronic aspiration PNA s/p PEG, HTN, Anthropometrics: Ht: 6'0" Wt: 85 kg BMI: 25.4 Labs: Na+ 132 Cl- 88 Gluc 120 Creat 0.5 Accuchecks 123 Meds: Solu-medrol, pepcid, lopressor, miralax, novolog, furosemide, protonix I/O & Bowel function: 0, last BM 10/13, diarrhea reported by the pt Skin Integrity: Scattered bruising to abdomen/ BUE Edema: None noted Estimated Nutrition Needs: 3740-0904 kcals (25-30 kcals/kg) 102-127 grams protein (1.2-1.5 grams/kg) Assessment: Chart reviewed, events noted. Pt was recently discharged from this facility on 10/07/16. He had a PEG placed during the previous admission for chronic aspiration and failing DIAGNOSTIC IMAGING MANAGER evaluations. Pt was discharged NPO on Jevity 1.5 @ 70 mL/hr continuously. Pt is currently in ICU, and RN just started Jevity 1.5 @ 30 mL/hr with orders to increase to goal rate. RD spoke with the pt at bedside. Pt is reportedly hungry, and jokingly requested a Big-mac from RD. RD explained that an DIAGNOSTIC IMAGING MANAGER evaluation has been ordered. RD spoke with DIAGNOSTIC IMAGING MANAGER who reports that the pt will need a video swallow evaluation. Pt reports that he has been having diarrhea, which he also reported last admission. He also stated that he has likely gained weight since being started on enteral nutrition. Of note, based on weights in [facility], the pt's weight is trending up. Please see recommendations below, as the recommended goal rate has been decreased. Dx: Inadequate oral intake RT chronic aspiration AEB pt receives enteral feeds for sole source nutrition, pt reports being hungry. Intervention: 1. Enteral nutrition 2. DIAGNOSTIC IMAGING MANAGER [facility] Nutrition Therapy DATE: 10/14/16 Patient: JANI ALLEN Physician: SVETLANA Address: [address] [facility] [address] Room/Bed: [address], Zip: [place] [address] Admit Date: 10/13/16 Date of : [birth year] Height: 6 0 Weight: 187 85 Monitoring, Evaluation and Goals: 1. Enteral nutrition; provide >80% goal volume x 24 hrs 2. Labs; WNL 3. Weight; prevent unintentional weight loss, promote weight maintenance 4. GI; promote regular GI function Recommendations: 1. RD recommending to decrease the pt's enteral nutrition goal rate, as the current goal rate slightly exceeds the pt's nutrient needs, and the pt reports having persistent diarrhea. -Increase Jevity 1.5 by 10 mL q 2 hrs as tolerated to goal of 60 mL/hr + 30 mL Prostat once daily to provide: 2260 kcals/ 107 grams protein/ 1094 mL free H20 2. DIAGNOSTIC IMAGING MANAGER evaluation to determine if the pt can safely tolerate PO intake. If the pt is deemed safe for PO intake, advance diet per DIAGNOSTIC IMAGING MANAGER recommendations + [address] will follow up to order supplements and adjust enteral nutrition as needed. Pt is at mild-moderate nutritional risk. RD will follow hospital course. Respectfully, ADITHYA CHARLES RD, LD Food and Nutritional Services [facility] cc: client file
[2016-10-13 12:27] LABS: BASOPHIL% 0.1 % (0-2.5); EOSINOPHIL% 0.2 % (0.0-7.0); HEMATOCRIT 31.4 % (38.0-50.0); HEMOGLOBIN 9.8 gm/dL (13.0-16.0); LYMPHOCYTE# 0.4 X10e3 (1.0-3.5); LYMPHOCYTE% 2.2 % (17.0-45.0); MEAN CELL VOLUME 88.9 FL (83-96); MEAN CORPUSCULAR HEMOGLOBIN 27.7 PG (28-34); MEAN CORPUSCULAR HGB CONC 31.2 g/dL (30-36); MEAN PLATELET VOLUME 7.6 FL (6.5-11.5); MONOCYTE# 0.7 X10e3 (0-1.0); MONOCYTE% 4.2 % (3.0-12.0); NEUTROPHIL# 15.9 X10e3 (1.5-7.1); NEUTROPHIL% 93.3 % (40-75); PLATELET COUNT 454 X10e3 (140-420); RED BLOOD COUNT 3.53 X10e (3.90-5.60); RED CELL DISTRIBUTION WIDTH 19.2 % (11.0-15.5); WHITE BLOOD COUNT 17.1 X10e3 (4.0-10.5)
[2016-10-13 12:32] LABS: DIFF IND YES
[2016-10-13 12:42] LABS: PLATELET ESTIMATE INCREASED (NORMAL)
[2016-10-13 12:43] LABS: ANISOCYTOSIS MOD
[2016-10-13 12:51] LABS: ALBUMIN SERUM 2.9 g/dL (3.5-5.0); BILIRUBIN, DIRECT 0.1 mg/dL (0.0-0.2); BILIRUBIN,TOTAL 0.1 mg/dL (0.2-2.0); CALCIUM SERUM 8.5 mg/dL (8.4-10.2); CREATININE SERUM 0.5 mg/dL (0.6-1.4); GLOM FILT RATE Estimated 112.2 mL/min (>60); POTASSIUM 4.2 mmol/L (3.5-5.1); PROTEIN TOTAL SERUM 7.2 g/dL (6.0-8.3)
[~2016-10-13 13:06] MED LIST changes: +ABILIFY5 MG PEG; +BAYER CHEWABLE81 MG PEG; +DALIRESP500 MCG PEG; +EFFEXOR75 MG PEG; +FLORASTORKIDS250 MG PEG; +JEVITY 1.5 CA1000 ML PO; +LASIX20 MG PEG; +METOPROLOL TART25 MG PEG; +MIRALAX17 GM PEG; +OXYCODONE HCL10 MG PEG; +PROTONIX PEG; +SINGULAIR PEG; +VYTORIN 10-101 EACH
[2016-10-13 13:15] LABS: ARTERIAL BLD GAS O2 SATURATION 97.6 % (90.0-100.0); ARTERIAL BLOOD GAS CARBOXY HB 0.7 %sat (0.0-9.0); ARTERIAL BLOOD GAS HCO3 41.4 mmol/L; ARTERIAL BLOOD GAS MET HB 0.7 %sat (0.0-2.0); ARTERIAL BLOOD GAS pH 7.374 (7.350-7.450)
[2016-10-13 13:18] LABS: ARTERIAL DRAW? YES
[2016-10-13 13:19] LABS: ARTERIAL BLOOD GAS ALLEN TEST NORMAL; ARTERIAL BLOOD GAS ART SITE LEFT RADIAL; ARTERIAL BLOOD GAS DELIVERY BIPAP 14/6
[2016-10-13 13:32] LABS: POC - CKMB 1.5 ng/mL (0.0-7.9); POC - TROPONIN <0.05 ng/mL (<=0.05)
[2016-10-13] MEDS ORDERED: PROVENTIL0.83 MG/ML INH (13:49)
[2016-10-13] MEDS ORDERED: AMBIEN PEG (13:49)
[2016-10-13] MEDS ORDERED: XANAX0.5 M1 PEG (13:50)
[2016-10-13] MEDS ORDERED: NOVOLOG FL100 UNIT/1 (13:52)
[2016-10-13] MEDS ORDERED: IPRAT-ALBUT 0.5-3 ML INH (13:53)
[2016-10-14 05:17] LABS: HEMATOCRIT 29.6 % (38.0-50.0); HEMOGLOBIN 9.7 gm/dL (13.0-16.0); LYMPHOCYTE# 0.4 X10e3 (1.0-3.5); LYMPHOCYTE% 3.1 % (17.0-45.0); MEAN CELL VOLUME 88.3 FL (83-96); MEAN CORPUSCULAR HEMOGLOBIN 28.9 PG (28-34); MEAN CORPUSCULAR HGB CONC 32.7 g/dL (30-36); MEAN PLATELET VOLUME 7.4 FL (6.5-11.5); MONOCYTE# 0.1 X10e3 (0-1.0); MONOCYTE% 0.6 % (3.0-12.0); NEUTROPHIL# 12.9 X10e3 (1.5-7.1); NEUTROPHIL% 96.3 % (40-75); PLATELET COUNT 452 X10e3 (140-420); RED BLOOD COUNT 3.35 X10e (3.90-5.60); WHITE BLOOD COUNT 13.4 X10e3 (4.0-10.5)
[2016-10-14 05:21] LABS: DIFF IND NO
[2016-10-14 06:43] LABS: CREATININE SERUM 0.5 mg/dL (0.6-1.4); GLOM FILT RATE Estimated 112.2 mL/min (>60); POTASSIUM 4.7 mmol/L (3.5-5.1)
[2016-10-15 10:48] LABS: HEMATOCRIT 28.7 % (38.0-50.0); HEMOGLOBIN 9.3 gm/dL (13.0-16.0); LYMPHOCYTE# 0.3 X10e3 (1.0-3.5); LYMPHOCYTE% 2.1 % (17.0-45.0); MEAN CELL VOLUME 87.6 FL (83-96); MEAN CORPUSCULAR HEMOGLOBIN 28.4 PG (28-34); MEAN CORPUSCULAR HGB CONC 32.4 g/dL (30-36); MEAN PLATELET VOLUME 7.2 FL (6.5-11.5); MONOCYTE# 0.5 X10e3 (0-1.0); MONOCYTE% 3.8 % (3.0-12.0); NEUTROPHIL# 13.2 X10e3 (1.5-7.1); NEUTROPHIL% 94.1 % (40-75); PLATELET COUNT 505 X10e3 (140-420); RED BLOOD COUNT 3.28 X10e (3.90-5.60); RED CELL DISTRIBUTION WIDTH 19.4 % (11.0-15.5)
[2016-10-15 11:03] LABS: DIFF IND NO
[2016-10-15 12:05] LABS: BUN/CREATININE RATIO 21.25; CALCIUM SERUM 9.2 mg/dL (8.4-10.2); CREATININE SERUM 0.8 mg/dL (0.6-1.4); GLOM FILT RATE Estimated 92.5 mL/min (>60); PHOSPHOROUS 2.2 mg/dL (2.5-4.6); POTASSIUM 4.1 mmol/L (3.5-5.1)
[2016-10-16 09:04] LABS: HEMATOCRIT 27.8 % (38.0-50.0); HEMOGLOBIN 8.9 gm/dL (13.0-16.0); MEAN CELL VOLUME 88.5 FL (83-96); MEAN CORPUSCULAR HEMOGLOBIN 28.4 PG (28-34); MEAN PLATELET VOLUME 7.7 FL (6.5-11.5); RED BLOOD COUNT 3.14 X10e (3.90-5.60); RED CELL DISTRIBUTION WIDTH 19.3 % (11.0-15.5); WHITE BLOOD COUNT 9.7 X10e3 (4.0-10.5)
[2016-10-16 09:46] LABS: CALCIUM SERUM 8.9 mg/dL (8.4-10.2); CREATININE SERUM 0.5 mg/dL (0.6-1.4); GLOM FILT RATE Estimated 112.2 mL/min (>60); POTASSIUM 3.3 mmol/L (3.5-5.1)
[2016-10-17 07:52] LABS: HEMATOCRIT 29.2 % (38.0-50.0); HEMOGLOBIN 9.3 gm/dL (13.0-16.0); MEAN CELL VOLUME 89.4 FL (83-96); MEAN CORPUSCULAR HEMOGLOBIN 28.4 PG (28-34); MEAN CORPUSCULAR HGB CONC 31.7 g/dL (30-36); MEAN PLATELET VOLUME 7.5 FL (6.5-11.5); RED BLOOD COUNT 3.27 X10e (3.90-5.60); RED CELL DISTRIBUTION WIDTH 19.1 % (11.0-15.5); WHITE BLOOD COUNT 8.4 X10e3 (4.0-10.5)
[2016-10-17 08:20] LABS: BUN/CREATININE RATIO 37.5; CREATININE SERUM 0.4 mg/dL (0.6-1.4); POTASSIUM 3.5 mmol/L (3.5-5.1)
[2016-10-18 04:31] LABS: HEMATOCRIT 29.8 % (38.0-50.0); HEMOGLOBIN 9.6 gm/dL (13.0-16.0); MEAN CORPUSCULAR HEMOGLOBIN 28.4 PG (28-34); MEAN CORPUSCULAR HGB CONC 32.2 g/dL (30-36); RED BLOOD COUNT 3.38 X10e (3.90-5.60); WHITE BLOOD COUNT 8.2 X10e3 (4.0-10.5)
[2016-10-18 05:58] LABS: CALCIUM SERUM 8.8 mg/dL (8.4-10.2); CREATININE SERUM 0.6 mg/dL (0.6-1.4); GLOM FILT RATE Estimated 104.1 mL/min (>60); POTASSIUM 3.3 mmol/L (3.5-5.1)
[2016-10-19 06:35] LABS: CALCIUM SERUM 8.9 mg/dL (8.4-10.2); CREATININE SERUM 0.5 mg/dL (0.6-1.4); GLOM FILT RATE Estimated 112.2 mL/min (>60); POTASSIUM 3.1 mmol/L (3.5-5.1)
[2016-10-21 14:20] LABS: CK TOTAL 30 IU/L (36-174)
[2016-10-21 20:33] LABS: CK TOTAL 31 IU/L (36-174)
[2016-10-22 06:19] LABS: HEMATOCRIT 34.5 % (38.0-50.0); HEMOGLOBIN 11.1 gm/dL (13.0-16.0); MEAN CELL VOLUME 89.4 FL (83-96); MEAN CORPUSCULAR HEMOGLOBIN 28.7 PG (28-34); MEAN CORPUSCULAR HGB CONC 32.1 g/dL (30-36); MEAN PLATELET VOLUME 7.8 FL (6.5-11.5); RED BLOOD COUNT 3.85 X10e (3.90-5.60); WHITE BLOOD COUNT 17.2 X10e3 (4.0-10.5)
[2016-10-22 06:49] LABS: BUN/CREATININE RATIO 33.33; CALCIUM SERUM 9.2 mg/dL (8.4-10.2); CREATININE SERUM 0.6 mg/dL (0.6-1.4); GLOM FILT RATE Estimated 104.1 mL/min (>60); MAGNESIUM 2.1 mg/dL (1.6-3.0); POTASSIUM 3.8 mmol/L (3.5-5.1)
[2016-10-22 19:30] LABS: HEMATOCRIT 33.4 % (38.0-50.0); HEMOGLOBIN 10.8 gm/dL (13.0-16.0); MEAN CELL VOLUME 88.4 FL (83-96); MEAN CORPUSCULAR HEMOGLOBIN 28.6 PG (28-34); MEAN CORPUSCULAR HGB CONC 32.3 g/dL (30-36); MEAN PLATELET VOLUME 7.7 FL (6.5-11.5); RED BLOOD COUNT 3.78 X10e (3.90-5.60); RED CELL DISTRIBUTION WIDTH 20.3 % (11.0-15.5); WHITE BLOOD COUNT 18.2 X10e3 (4.0-10.5)
[2016-10-23 05:19] LABS: HEMATOCRIT 34.1 % (38.0-50.0); HEMOGLOBIN 10.7 gm/dL (13.0-16.0); MEAN CELL VOLUME 89.9 FL (83-96); MEAN CORPUSCULAR HEMOGLOBIN 28.2 PG (28-34); MEAN CORPUSCULAR HGB CONC 31.4 g/dL (30-36); MEAN PLATELET VOLUME 7.9 FL (6.5-11.5); RED BLOOD COUNT 3.8 X10e (3.90-5.60); RED CELL DISTRIBUTION WIDTH 20.7 % (11.0-15.5); WHITE BLOOD COUNT 16.9 X10e3 (4.0-10.5)
[2016-10-23 06:34] LABS: BUN/CREATININE RATIO 31.66; CREATININE SERUM 0.6 mg/dL (0.6-1.4); GLOM FILT RATE Estimated 104.1 mL/min (>60)
[2016-10-24 05:45] LABS: BASOPHIL% 0.1 % (0-2.5); HEMATOCRIT 33.4 % (38.0-50.0); HEMOGLOBIN 10.5 gm/dL (13.0-16.0); LYMPHOCYTE# 0.3 X10e3 (1.0-3.5); LYMPHOCYTE% 1.8 % (17.0-45.0); MEAN CELL VOLUME 89.6 FL (83-96); MEAN CORPUSCULAR HEMOGLOBIN 28.2 PG (28-34); MEAN CORPUSCULAR HGB CONC 31.5 g/dL (30-36); MEAN PLATELET VOLUME 8.1 FL (6.5-11.5); MONOCYTE# 0.4 X10e3 (0-1.0); MONOCYTE% 2.5 % (3.0-12.0); NEUTROPHIL# 16.5 X10e3 (1.5-7.1); NEUTROPHIL% 95.6 % (40-75); PLATELET COUNT 396 X10e3 (140-420); RED BLOOD COUNT 3.73 X10e (3.90-5.60); RED CELL DISTRIBUTION WIDTH 20.4 % (11.0-15.5); WHITE BLOOD COUNT 17.2 X10e3 (4.0-10.5)
[2016-10-24 05:47] LABS: DIFF IND YES
[2016-10-24 06:06] LABS: ANISOCYTOSIS MOD; PLATELET ESTIMATE NORMAL (NORMAL); POIKILOCYTOSIS MOD
[2016-10-24 07:01] LABS: CREATININE SERUM 0.5 mg/dL (0.6-1.4); GLOM FILT RATE Estimated 112.2 mL/min (>60); MAGNESIUM 1.9 mg/dL (1.6-3.0); POTASSIUM 3.9 mmol/L (3.5-5.1)
[2016-10-25 05:17] LABS: BASOPHIL% 0.2 % (0-2.5); HEMATOCRIT 32.2 % (38.0-50.0); HEMOGLOBIN 10.3 gm/dL (13.0-16.0); LYMPHOCYTE# 0.2 X10e3 (1.0-3.5); LYMPHOCYTE% 1.2 % (17.0-45.0); MEAN CELL VOLUME 88.5 FL (83-96); MEAN CORPUSCULAR HEMOGLOBIN 28.3 PG (28-34); MEAN CORPUSCULAR HGB CONC 31.9 g/dL (30-36); MEAN PLATELET VOLUME 7.9 FL (6.5-11.5); MONOCYTE# 0.5 X10e3 (0-1.0); MONOCYTE% 2.9 % (3.0-12.0); NEUTROPHIL# 15.9 X10e3 (1.5-7.1); NEUTROPHIL% 95.7 % (40-75); PLATELET COUNT 390 X10e3 (140-420); RED BLOOD COUNT 3.64 X10e (3.90-5.60); RED CELL DISTRIBUTION WIDTH 21.3 % (11.0-15.5); WHITE BLOOD COUNT 16.6 X10e3 (4.0-10.5)
[2016-10-25 05:18] LABS: DIFF IND NO
[2016-10-25 06:07] LABS: BUN/CREATININE RATIO 31.66; CALCIUM SERUM 9.2 mg/dL (8.4-10.2); CREATININE SERUM 0.6 mg/dL (0.6-1.4); GLOM FILT RATE Estimated 104.1 mL/min (>60); MAGNESIUM 1.9 mg/dL (1.6-3.0); POTASSIUM 3.8 mmol/L (3.5-5.1)
[2016-10-26 07:20] LABS: HEMATOCRIT 33.3 % (38.0-50.0); HEMOGLOBIN 10.7 gm/dL (13.0-16.0); MEAN CELL VOLUME 88.5 FL (83-96); MEAN CORPUSCULAR HEMOGLOBIN 28.4 PG (28-34); MEAN CORPUSCULAR HGB CONC 32.1 g/dL (30-36); RED BLOOD COUNT 3.76 X10e (3.90-5.60); RED CELL DISTRIBUTION WIDTH 20.9 % (11.0-15.5)
[2016-10-26 07:51] LABS: BUN/CREATININE RATIO 33.33; CALCIUM SERUM 9.2 mg/dL (8.4-10.2); CREATININE SERUM 0.6 mg/dL (0.6-1.4); GLOM FILT RATE Estimated 104.1 mL/min (>60); POTASSIUM 4.1 mmol/L (3.5-5.1)
[2016-10-26] MEDS ORDERED: AMIODARONE HCL200 MG PEG (20:14)
[2016-10-26] MEDS ORDERED: METAMUCIL SMOOT1 PKT PO (20:15)
[2016-10-26] MEDS ORDERED: BACTRIM DS TAB1 EACH PEG (20:17)
[2016-10-26] MEDS ORDERED: PREDNISONE10 MG PEG (20:19)
[2016-10-26] MEDS ORDERED: COMBIVENT U/D3 M2 INH (20:22)
== END 2016-10-26 23:41 | disposition home health service (06) | DRG 177 ==
LOC: CED 13:06 → CEDOF 14:05 → CICCU3 21:21 → C5C 10-15 03:33
PROVIDERS: Emergency Medicine; Internal Medicine Pulmonary Disease; Nurse Practitioner
PROC: 05H433Z Insertion of Infusion Device into Left Innominate Vein, Percutaneous Approach (ICD-10-PCS; 2016-10-19)
PROC: B54NZZA Ultrasonography of Left Upper Extremity Veins, Guidance (ICD-10-PCS; 2016-10-19)
PROC: B246ZZZ Ultrasonography of Right and Left Heart (ICD-10-PCS; principal; 2016-10-21)
DX: J69.0 Pneumonitis due to inhalation of food and vomit (principal); J96.21 Acute and chronic respiratory failure with hypoxia; J47.1 Bronchiectasis with (acute) exacerbation; I47.9 Paroxysmal tachycardia, unspecified; I10 Essential (primary) hypertension; E78.5 Hyperlipidemia, unspecified; I25.10 Atherosclerotic heart disease of native coronary artery without angina pectoris; I45.10 Unspecified right bundle-branch block; F10.21 Alcohol dependence, in remission; Z87.891 Personal history of nicotine dependence; Z79.82 Long term (current) use of aspirin; R13.13 Dysphagia, pharyngeal phase
CPT/HCPCS: 36600; 71010; 71020; 74230; 80048; 80061; 80076; 80200; 80202; 82308; 82550; 82553; 82803; 82947; 83605; 83735; 83880; 84100; 84443; 84484; 85025; 85027; 87040; 87070; 87077; 87186; 87205; 92526; 92611; 93005; 93306; 94640; 94660; 94760; 96361; 96374; 97110; 97116; 97162; 97167; 97530; 97535; 99291; G8978-GP; G8979-GP; G8987-GO; G8988-GO; G8996-GN; G8997-GN; G8998-GN; J1650; J1815; J2543; J2930; J3260; J3370

== ENCOUNTER → 2016-12-14 | Outpatient (CLI) | payer OTHER ==
[~2016-12-14] MED LIST changes: +AMBIEN PEG; +AMIODARONE HCL200 MG PEG; +BACTRIM DS TAB1 EACH PEG; +COMBIVENT U/D3 M2 INH; +IPRAT-ALBUT 0.5-3 ML INH; +METAMUCIL SMOOT1 PKT PO; +NOVOLOG FL100 UNIT/1; +PREDNISONE10 MG PEG; +PROVENTIL0.83 MG/ML INH; +XANAX0.5 M1 PEG
== END | disposition home or self-care (01) ==
LOC: CRAD 09:25
DX: R47.02 Dysphasia (principal); Z87.01 Personal history of pneumonia (recurrent)
CPT/HCPCS: 74230; 92611; G8996-GN; G8997-GN; G8998-GN

== ENCOUNTER → 2017-02-01 | Outpatient (CLI) | payer OTHER | END | disposition home or self-care (01) | LOC: CRAD 09:06 | DX: R47.02 Dysphasia (principal) | CPT/HCPCS: 74230; 92611; G8996-GN; G8997-GN; G8998-GN ==